=== PATIENT | female | born 2000 | race Caucasian/White ===

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

== ENCOUNTER 2021-01-04 07:09 | Inpatient (IN) | payer MEDICAID, SELFPAY ==
[2021-01-01 14:26] VITALS: BMI 27.8
[2021-01-04] VITALS (62 sets, daily range): BP systolic 102–142; BP diastolic 59–98; PULSE 69–135; RESP 16; TEMP 36.6–38.2; O2SAT 86–100; BMI 27.1
[2021-01-04] MEDS: Lactated Ringers 1,000 ML 50 ML IV (07:40)
[2021-01-04 08:10] LABS: Absolute Neutrophil Count 6.3 X10^3/uL (2.0-7.7); Basophil# 0.06 X10^3/uL; Basophil% 0.6 % (0-1); Eosinophil# 0.15 X10^3/uL; Eosinophils% 1.5 % (0-5); Hematocrit 33.4 % (37-47); Hemoglobin 10.1 g/dL (12.0-15.0); Lymphocyte % 21.3 % (19-41); Mean Corp Hgb Conc 30.2 g/dL (32-36); Mean Corpuscular Hgb 25.1 pg (27.0-32.0); Mean Corpuscular Volume 83.1 fL (81-99); Mean Platelet Vol. 13.3 fl (6.2-12.0); Monocyte# 1.11 X10^3/uL; Monocyte% 11.2 % (0-10); NRBC Flagged by Analyzer 0 % (0-5); Neutrophil % 63.8 % (47-70); Platelet Count 206 K/mm3 (150-450); RBC Distribution Width CV 14.5 % (11.6-14.6); RBC Distribution Width SD 43.7 fl (35.1-43.9); Red Blood Count 4.02 M/mm3 (4.2-5.4); White Blood Count 9.9 K/mm3 (4.4-11.0)
[2021-01-04] MEDS: Oxytocin 30 units/NS 500 ml 30 UNITS/500 ML IV.SOLN IV (08:18)
[2021-01-04] MEDS: Ondansetron 4 MG/2 ML Vial IV ×2 (08:34→15:21)
[2021-01-04] MEDS: 0.9% Saline Lock 10 ML Syringe IV ×4 (08:34→20:31)
[2021-01-04] MEDS: 0.9% Normal Saline Single 100 ML IV.SOLN. INTRA-UTER (08:38)
--- NOTE | 2021-01-04 09:01 | PCM.HPOB.BLA ---
- Problem List (1) Decreased movement Status: Acute Comment: plan IOL 39 weeks (2) 35 weeks gestation of Status: Acute Comment: electronic covid test ordered 12/03/20 (scheduled for 01/08/21 at 1550) (3) Marijuana abuse Status: Acute Comment: random tox (4) Scoliosis Status: Acute Qualifiers: Comment: Does report causes occasional pain. (5) Bipolar disorder Status: Acute Comment: Not on meds. Reports mood stable. (6) Supervision of high risk , antepartum Status: Acute Comment: PRR HAZEL 01/10/21 Girl - BHASKAR Marcialin (7) Status: Acute Qualifiers: Comment: CLF[place]ON at 27w. Reports did not have genetic testing. NOB labs ordered with 28w labs. 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 Is patient in pain?: No Allergies codeine Allergy (Verified 01/04/21 07:44) HALLUCINATIONS polyethylene glycol 3350 [From Miralax] Adverse Reaction (Verified 01/04/21 07:44) Hives Medications No122/Iron/Folic Acid [ Multi Tablet] 1 ea PO DAILY 11/10/20 [History Confirmed 01/04/21] ondansetron 4 mg disintegrating tablet 4 mg PO Q8H PRN #60 tab 11/25/20 [Rx Confirmed 01/04/21] Last Menstral Period: 04/05/20 Zika: Zika virus screening: Negative : No PFSH PFSH Medical History ADD (attention deficit disorder) (Acute) Depression with anxiety (Acute) OCD (obsessive compulsive disorder) (Acute) bipolar (Acute) Surgical History S/P appendectomy (Resolved) S/P tonsillectomy (Resolved) s/p finger surgery (Resolved) Family History Other Colon cancer Hypertension Lung cancer Ovarian cancer Schizophrenia Uterine cancer bipolar Social History (Updated 01/04/21 @ 08:[address] Ania Tavarez MD) Smoking Status: Never smoker alcohol intake: never substance use type: does not use seatbelt use: always do you feel safe at home: Yes additional social history: Boyfriend- Johnnie Pregancy History 3 Elective abortions Hx Para 0 Spontaneous abortions 2 Hx # Term Pregnancies Ectopic pregnancies Hx # Pregnancies Multiple births # of living children HPI 38WK OB : Details: SHANNAN ESTEBAN is a 20 year old who presents for routine OB visit. she is having decreased movement and therfore will undrgo IOL on 01/04/21 at 39 weeks. OB Visit HAZEL Calculator Estimated Delivery Date Method Current WG Current Estimate 01/10/21 LMP (Certain) 39w 1d Expected Delivery Route/Plan Labor Preferences- CB/BF classes: declines labor support person: Johnnie labor intervention preferences: interested in laboring in tub, open to standard interventions pain management options preferred: open to epidural cut cord/dad catch: cut : yes PP control planned: considering patch discussed possible routes of delivery and associated risks: discussed possible delivery modalities and possible indications for each including R/B/A of , VAVD, FAVD, and CS. questions answered. special requests: wants baby cleaned off before placed on chest Specific Issue/Plans flu vaccine: declines tdap vaccine: declines rhogam: NA LARC form signed: 11/25 movement and labor precautions reviewed. Problem list reviewed and updated with the most current plan of care details and appropriate orders placed. Relevant counseling for the gestational age provided. Continue routine care and follow up unless otherwise noted in visit notes/problem list details Initial Weight: Not Recorded Date EGA Weight BP Urine Prot Glucose FHR FuHt Pres Dilation Effaced St Visit Note 10/16/20 27w 5d 117 lb 2 oz 120/76 140 27 GP - CLIFTON from . ROR pending. Oriented to practice. OB book provided. GCT and NOB labs ordered. 10/28/20 29w 3d 114/70 Negative Negative 130 29 GP - no LOF, VB, DFM, ctx. GCT and 28 week labs to be drawn today (drank glucola during visit). NOB labs ordered with labs. 11/25/20 33w 3d 126 lb 120/74 Negative Negative 140 33 GP - no LOF,VB GP - no LOF,VB, DFM ctx. Discussed labor preferences. LARC form signed. PRR. 12/10/20 35w 4d 132 lb 120/82 Negative Negative 135 35 GP - no LOF, VB, DFM, ctx. Discussed routes of delivery. 12/18/20 36w 5d 137 lb 122/80 Negative Negative 130 37 Cephalic 1 60 -1 SM- no vb lof good fm no reuglar ctx gbs today 01/01/21 38w 5d 138 lb 100/60 Negative Negative 130 2 60 -1 SM- co dec fm for the past few days, reactive nst today. no vb lof irregular ctx ACOG First Trimester First Trimester: Desire for , Alcohol, Tobacco Cessation, Illicit/Recreational Drug/Substance Use, Intimate Partner Violence, Barriers to care, Unstable Housing, Communication Barriers, Environmental/Work Hazards, Anticipated Course of Care, Toxoplasmosis Precations, Use of Any medications, Sexual activity, Exercise, Dental Care, Sauna/Hot tub use, Seat Belt use, Childbirth classes/Hospital facilities, , Travel, Indications for US and Screening for Aneuploidy Second Trimester Second Trimester: Signs and Symptoms of Labor, Selecting a care provider, Reproductive Life Planning, Care Planning, Tobacco Cessation, Depression/Anxiety and Intimate Partner Violence Third Trimester Third Trimester: Pain Management Plans, Labor support person(s), Immediate Larc, Movement Monitoring and Infant Feeding Yes ; discussed Trial of Labor after Counseling or discussed Circumcision preference Diagnostics Diagnostics Diagnostics Blood Type Pending 01/04/21 Antibody Screen Pending 01/04/21 Glucose 1 Hr 50 gm 87 mg/dL (70-140) 10/28/20 HIV 1&2 Antibody Non-Reactive (Nonreactive) 10/28/20 Rubella IgG Antibody Reactive (Nonreactive) 10/28/20 Hgb 10.1 g/dL (12.0-15.0) L 01/04/21 Hct 33.4 % (37-47) L 01/04/21 RPR NONREACTIVE (NONREACTIVE) 10/28/20 Details: HIV: Urine Culture: Sequential Screen: NIPT Screen: ROS Const Reports system reviewed and no additional complaints, except as docu Card Reports system reviewed and no additional complaints, except as docu Resp Reports system reviewed and no additional complaints, except as docu GI Reports system reviewed and no additional complaints, except as docu, Reports nausea Reports system reviewed and no additional complaints, except as docu Musc Reports system reviewed and no additional complaints, except as docu Exam Const General: cooperative, healthy appearing, comfortable, anxious HENMT Head: normal to inspection Nose: external nose normal Face and sinus: normal facial exam Neck Neck: normal visual inspection, full ROM, no lymphadenopathy Thyroid: thyroid normal Chest Chest palpation & inspection: normal inspection of the chest Resp Effort & Inspection: normal respiratory effort GI Inspection: normal to inspection Palpation: soft, other (gravid uterus) Other: infant vertex and appropriate size for gestational age Other: Cervical Exam: Extrem General: pedal edema Office Procedures OB NST Non-Stress Test Indications for Monitoring: Yes decreased movement Heart Rate Baseline: 130 Heart Rate Variability: moderate Movement: Present Heart Rate Accelerations: Present Decelerations: Absent Contractions: Absent Impression: Yes Reactive Non-Stress Test Category 1 Results POC Urinalysis 2 Dip (Clinic) Office Urine Glucose Negative Last Edit by Jennifer Irvin on 01/01/21 14:32 Office Urine Protein Negative Last Edit by Jennifer Irvin on 01/01/21 14:32 Assessment & Plan Problems 1. Decreased movement O36.8190 plan IOL 39 weeks 2. 35 weeks gestation of Z3A.35 electronic covid test ordered 12/03/20 (scheduled for 01/08/21 at 1550) 3. Marijuana abuse F12.10 random tox 4. Scoliosis M41.9 Does report causes occasional pain. 5. Bipolar disorder F31.9 Not on meds. Reports mood stable. 6. Supervision of high risk , antepartum O09.90 PRR HAZEL 01/10/21 Girl - BHASKAR Marcial 7. Z34.90 CLIFTON at 27w. Reports did not have genetic testing. NOB labs ordered with 28w labs. Plan Patient presents IOL, plan management for with pitocin/AROM. and fb Pain management: plans epidural. GBS negative. Management of any complications: decreased movement- plan IOL I have reviewed the [facility] and made any clinically relevant updates. Orders Orders: POC Urinalysis 2 Dip (Clinic) 01/01/21 OB NST 01/01/21 O09.90, O36.8190 Coding Level of Care Code Off vis,est,level 4 Diagnoses Decreased movement O36.8190 35 weeks gestation of Z3A.35 Marijuana abuse F12.10 Scoliosis M41.9 Bipolar disorder F31.9 Supervision of high risk , antepartum O09.90 Z34.90 Additional Codes Non-Stress Test (51999) UPDATE- I have seen the patient and performed any clinically relevant updates to the history and physical exam. Ania Tavarez MD
[2021-01-04 11:26] LABS: Amphetamine Urine VISTA NEGATIVE (<1000 ng/mL); Barbiturate Urine VISTA NEGATIVE (< 200 ng/mL); Benzodiazepine Urine VISTA NEGATIVE (< 200 ng/mL); Cocaine Urine VISTA NEGATIVE (< 300 ng/mL); Ecstacy Urine VISTA NEGATIVE (< 500 ng/mL); Methadone Urine VISTA NEGATIVE (< 300 ng/mL); PCP Urine VISTA NEGATIVE (< 25 ng/mL); THC Urine VISTA NEGATIVE (< 50 ng/mL); Vista UDS pH Range 6
[2021-01-04] MEDS: Lactated Ringers 500 ML 999 ML IV ×2 (12:40→15:44)
[2021-01-04] MEDS: fentaNYL-bupivacaine (epidural) 100 ML BAG EPIDURAL (13:13)
[2021-01-04] MEDS: proCHLORPERazine 10 MG/2 ML Vial IV (16:57)
--- NOTE | 2021-01-04 17:17 | PCM.OPRPT ---
Problem List (1) Decreased movement Status: Acute Comment: plan IOL 39 weeks (2) 35 weeks gestation of Status: Acute Comment: electronic covid test ordered 12/03/20 (scheduled for 01/08/21 at 1550) (3) Marijuana abuse Status: Acute Comment: random tox (4) Scoliosis Status: Acute Qualifiers: Comment: Does report causes occasional pain. (5) Bipolar disorder Status: Acute Comment: Not on meds. Reports mood stable. (6) Supervision of high risk , antepartum Status: Acute Comment: PRR HAZEL 01/10/21 Girl - BHASKRA Marcial (7) Status: Acute Qualifiers: Comment: CLIFTON at 27w. Reports did not have genetic testing. NOB labs ordered with 28w labs. Vaginal Delivery Maternal Presentation: Medically Indicated Induction iol dec fm Method of Induction: Pitocin, Sanchez Bulb Amniotic Membrane Rupture Type: Spontaneous Amniotic Fluid Description: Clear Final HAZEL: 01/10/21 Gestational age: 39 Weeks and 2 Days Date of Procedure: 01/04/21 Pre-Operative Diagnosis: iol dec fm Post-Operative Diagnosis: same Surgery/ Procedure Performed: Spontaneous Vaginal Delivery Type of Anesthesia: Epidural Description of Procedure: Patient began pushing and delivered the head in the ALEXUS presentation. The head was delivered atraumatically and a loose nuchal cord ?1 was identified and the head was easily delivered through. The anterior and posterior shoulders delivered without complication followed by the rest of the infant and the was placed on the maternal abdomen. Delayed cord clamping was employed for approximately 60 seconds. Cord was clamped and cut and gentle traction was applied to the cord and the placenta delivered spontaneously immediately following it was noted to be intact with three-vessel cord. The perineum and vagina were inspected and noted to have no laceration. EBL was 200 cc. Patient and infant tolerated delivery well. Presentation: ALEXUS Placental Delivery Description: Spontaneous Placenta Disposition: [facility] Cord Vessel Description: 3 Vessels Cord Entanglement: Around neck x 1, loose Estimated Blood Loss: 200 Infant A gender: Female Episiotomy Description: None Laceration: None Medications given after delivery: IV Pitocin Complications: None Multi Select Codes - Urinary/Genital Urinary/Genital CPT Codes: 09504 Vaginal Delivery+ PP Care([facility])
[2021-01-04] MEDS: Oxytocin 30 units/NS 500 ml 30 UNITS/500 ML IV.SOLN 334 UNITS IV (17:51)
[2021-01-04] MEDS: Acetaminophen 500 MG Tablet 1000 MG PO (19:48)
--- NOTE | 2021-01-04 20:08 | NURSING ---
Called Dr. Tavarez to update that patient's temp is down to 99.9 orally. Plan is to continue to let Dr. Tavarez know if patient's temperature exceeds 100.4 over the next 24 hours.
[2021-01-05 03:15] VITALS: BP 116/84; PULSE 78; RESP 16; TEMP 36.2
[2021-01-05] MEDS: Naproxen 250 MG Tablet 500 MG PO ×2 (03:37→12:36)
--- NOTE | 2021-01-05 07:44 | PCM.PN.OB ---
Patient Problems: Active and Suspected Problems (Last Reviewed 01/01/21 @ 14:26 by Jennifer Irvin) Decreased movement (Acute) plan IOL 39 weeks 35 weeks gestation of (Acute) electronic covid test ordered 12/03/20 (scheduled for 01/08/21 at 1550) Marijuana abuse (Acute) random tox Scoliosis (Acute) Does report causes occasional pain. Bipolar disorder (Acute) Not on meds. Reports mood stable. Supervision of high risk , antepartum (Acute) PRR HAZEL 01/10/21 Girl - BHASKAR Marcial Johnnie (Acute) [place] at 27w. Reports did not have genetic testing. NOB labs ordered with 28w labs. Subjective: Patient doing well without complaints. Tolerating PO. Ambulating and voiding without difficulty. Bottle feeding well. Denies chest pain, shortness of breath, calf pain/swelling, fevers, chills, lightheadedness. - Physical Exam Vitals/I&O's: Vital Signs Temp Pulse Resp BP Pulse Ox 97.2 F L 78 16 116/84 H 97 01/05/21 03:15 01/05/21 03:15 01/05/21 03:15 01/05/21 03:15 01/04/21 20:00 Oxygen Delivery Method Room Air Weight: 134 lb 11.239 oz Body Mass Index (BMI) 27.1 Intake and Output for Last 24 Hours 01/03/21 01/04/21 01/05/21 23:59 23:59 23:59 Intake Total 3444.17 / 3444.17 Output Total 2450 / 2450 Balance 994.17 / 994.17 General: Alert, Oriented x3 Abdomen: Soft, Non Tender, - - FF below U Microbiology Past 72 Hours 01/04/21 08:29 Mucosa - Oral SARS-CoV-2 Antigen (Rapid) - Final Laboratory Results 01/04/21 07:42: WBC 9.9, RBC 4.02 L, Hgb 10.1 L, Hct 33.4 L, MCV 83.1, MCH 25.1 L, MCHC 30.2 L, RDW Std Deviation 43.7, RDW Coeff of Rodney 14.5, Plt Count 206, MPV 13.3 H, Immature Gran % (Auto) 1.600 H, Neut % (Auto) 63.8, Lymph % (Auto) 21.3, [place] % (Auto) 11.2 H, Eos % (Auto) 1.5, Baso % (Auto) 0.6, Absolute Neuts (auto) 6.3, Absolute Lymphs (auto) 2.10, Nucleated RBC % 0 01/04/21 07:42: Blood Type O POSITIVE, Antibody Screen NEGATIVE 01/04/21 09:20: Urine Opiates Screen NEGATIVE, Urine Methadone Screen NEGATIVE, Ur Barbiturates Screen NEGATIVE, Ur Phencyclidine Scrn NEGATIVE, Ur Amphetamines Screen NEGATIVE, U Methamphetamin-MDMA NEGATIVE, U Benzodiazepines Scrn NEGATIVE, Urine Cocaine Screen NEGATIVE, U Cannabinoids Screen NEGATIVE, Ur Drug Screen Comment Current Medications Acetaminophen (Acetaminophen 500 Mg Tablet) 1,000 mg PO Q8H PRN PRN PRN Reason: Pain Score 1-3 Last Admin: 01/04/21 19:48 Dose: 1,000 mg Documented by: Bisacodyl (Bisacodyl 10 Mg Suppository) 10 mg RECTAL UD PRN PRN Reason: If no BM Dibucaine (Dibucaine 30 Gm Tube) 1 applic TOPICAL TID PRN PRN; Protocol PRN Reason: Discomfort Hydrocortisone (Hydrocortisone 2.5% Crm) 1 applic TOPICAL TID PRN PRN; Protocol PRN Reason: Discomfort Methylergonovine Maleate (Methylergonovine 0.2 Mg/Ml Ampul) 0.2 mg IM X1 PRN PRN Reason: Excess bleeding/uterine atony Naproxen (Naproxen 250 Mg Tablet) 500 mg PO Q8H PRN PRN PRN Reason: Pain Score 1-3 Last Admin: 01/05/21 03:37 Dose: 500 mg Documented by: Ondansetron HCl (Ondansetron 4 Mg/2 Ml Vial) 4 mg IV Q4H PRN PRN PRN Reason: Nausea Oxycodone HCl (Oxycodone 5 Mg Tablet) 5 - 10 mg PO Q4H PRN PRN PRN Reason: Pain Score 4-10 Senna/Docusate Sodium (Senna/Docusate Sodium 1 Tablet) 1 - 2 tablet PO DAILY PRN PRN PRN Reason: Constipation Simethicone (Simethicone 80 Mg Tablet) 80 mg PO PCHS PRN PRN Reason: Indigestion/Stomach pain Sodium Chloride (0.9% Saline Lock 10 Ml Syringe) 5 - 15 ml IV UD PRN PRN Reason: SALINE FLUSH Last Admin: 01/04/21 20:31 Dose: 10 ml Documented by: Medical Necessity - Tobacco Use Smoking Status: Never smoker Assessment/Plan All Active Problems (Last Reviewed 01/01/21 @ 14:26 by Jennifer Irvin) Decreased movement (Acute) 35 weeks gestation of (Acute) Marijuana abuse (Acute) Scoliosis (Acute) Bipolar disorder (Acute) Supervision of high risk , antepartum (Acute) (Acute) Threatened labor (Resolved) s/p PPD # 1 1. routine post delivery care 2. bottle feeding- support given 3. rh positive 4. rubella immune 5. home today
--- NOTE | 2021-01-05 07:46 | DCINST_ITS ---
Additional Instructions: If you experience any of the following, contact your healthcare provider. * Bleeding that soaks a pad every hour for 2 hours * Fever 100.4 or higher * Unrelieved incision or abdominal pain * Swelling, redness, discharge or bleeding from your incision or episiotomy site * Your incision begins to separate * Problems urinating (including inability to urinate or burning while urinating). * Visual changes * Severe headache * Flu-like symptoms * Pain or redness in one of both of your breasts * Pain, warmth, tenderness or swelling in your legs, especially the calf area * Frequent nausea and vomiting * Symptoms of depression or anxiety If you experience any of the following, call 911 or go to the nearest Emergency Room. * Chest pain * Problems breathing * Seizure activity * Partial or complete paralysis of a body part, slurred speech, weakness or drooping of the face, or a sudden inability to walk or hold your balance Allergies/Adverse Reactions: Allergies codeine Allergy (Verified 01/04/21 07:44) HALLUCINATIONS polyethylene glycol 3350 [From Miralax] Adverse Reaction (Verified 01/04/21 07:44) Hives Medications to take at Discharge No122/Iron/Folic Acid [ Multi Tablet] 1 ea PO DAILY 11/10/20 ondansetron 4 mg disintegrating tablet 4 mg PO Q8H PRN #60 tab 11/25/20 Primary Care Physician: Care Physician,No Primary [Primary Care Provider] - Test Results: Test results from this visit will be discussed in further detail at your follow- up appointment, if applicable.
--- NOTE | 2021-01-05 07:46 | PCM.DCVAG ---
Additional Instructions: If you experience any of the following, contact your healthcare provider. Bleeding that soaks a pad every hour for 2 hours Fever 100.4 or higher Unrelieved incision or abdominal pain Swelling, redness, discharge or bleeding from your incision or episiotomy site Your incision begins to separate Problems urinating (including inability to urinate or burning while urinating). Visual changes Severe headache Flu-like symptoms Pain or redness in one of both of your breasts Pain, warmth, tenderness or swelling in your legs, especially the calf area Frequent nausea and vomiting Symptoms of depression or anxiety If you experience any of the following, call 911 or go to the nearest Emergency Room. Chest pain Problems breathing Seizure activity Partial or complete paralysis of a body part, slurred speech, weakness or drooping of the face, or a sudden inability to walk or hold your balance Allergies/Adverse Reactions: Allergies codeine Allergy (Verified 01/04/21 07:44) HALLUCINATIONS polyethylene glycol 3350 [From Miralax] Adverse Reaction (Verified 01/04/21 07:44) Hives Medications to take at Discharge No122/Iron/Folic Acid [ Multi Tablet] 1 ea PO DAILY 11/10/20 ondansetron 4 mg disintegrating tablet 4 mg PO Q8H PRN #60 tab 11/25/20 Primary Care Physician: Care Physician,No Primary [Primary Care Provider] - Test Results: Test results from this visit will be discussed in further detail at your follow-up appointment, if applicable.
[2021-01-05] MEDS: Acetaminophen 500 MG Tablet 1000 MG PO (07:58)
[2021-01-05 08:11] VITALS: BP 124/78; PULSE 64; RESP 16; TEMP 36.2
[2021-01-05 12:00] VITALS: BP 117/82; PULSE 91; RESP 16; TEMP 36.6
[2021-01-05 16:08] VITALS: BP 120/82; PULSE 76; RESP 20; TEMP 36.8
--- NOTE | 2021-01-05 16:11 | CASEMGMT ---
Social Work Assessment Labor and Delivery Unit Patient Address: [address] [place] [address]., [address], [place] [id number] Phone number: [phone] Date of Referral: 01/04/2021 Time of Referral: 727 Referred By: Dr. Tavarez Date of Intervention: 01/05/2021 Time of Intervention: 1529 Reason for Referral: Maternal history of marijuana in , anxiety, depression, OCD, bipolar disorder, not on medication. History obtained from: Medical records and mother of baby (MOB) Jonathan Sullivan; father of baby (FOB) Johnnie Vázquez present for latter part of conversation. Household composition: MOB and FOB live together in a mobile home. Home situation is reported as safe and adequate. Patient's parent/guardian status: MICHELLE is a 20-year-old single female who has been involved with the FOB who is age 32 for the last 3 years. No reports of any domestic violence issues in this relationship. Duncan baby is the first child for MOB and FOB together. FOB does have 2 older children: Ad (age 9) and Antonio (age 4). FOB does not see Ad but gets visits with Antonio (Antonio is in the custody of ADILENE's mother). Duncan baby girl is to be named Aggie Vázquez, born 3.. Medical History: MICHELLE is 3, para 0 now 1 after delivering Aggie. care started somewhere in the end of the first trimester or beginning of second trimester. Noted an emergency room visit in May 2020 where it was known MICHELLE was . MICHELLE reports she started her care at [facility] and went to a couple of appointments, but did not like the drive nor the lack of personal experience she received. MICHELLE transferred care to Dr. Farrukh Santos at 27 weeks gestation in October 2020. Noted in the care record the MOB did miss an appointment with Dr. Tavarez on September 22, 2020. Duncan baby delivered at 7 pounds 8 ounces, 39 weeks gestation. Apgars 8 and 9 at 1 and 5 minutes of life respectively. Educational Status: MICHELLE reports she did not complete past the eighth grade. Reports she quit school due to a younger sister having health issues, and MOB mom not really been attentive to the sister's needs. MICHELLE reports that she does at times have difficulty reading and writing but with help has no issues with comprehension. MICHELLE reports that the FOB is helpful to her if she has a hard time with what she is reading. Financial Status: FONi reports he is trained as a powerhouse mechanic apprentice so is able to do some side jobs. FOB also helps the MOB grandfather with cutting wood on the weekends. It is unclear as to whether there is any other financial support in the home. Supplies: MOB and FOB report to have needed baby supplies including a car seat, crib, bassinet, diapers, clothing, swing, bottles, breast pump and formula. Childcare/Caregiver(s): MOB plans to be the primary caregiver with the help of the FOB. Transportation: Neither parent drives so rely on the FOB's mother, MOB grandmother, or MOB mother. MICHELLE is aware of transportation through her insurance. Programs/Agencies Involved: MICHELLE is connected with [facility] [id number] and family [employer] for food and medical. Reports to be active with [facility]. Has a history of attending [facility], but not current. MICHELLE reports to have an appointment for the baby at [facility] on 01/08/2021. MOB interested in help me grow information only. Not interested in a referral at this time. Children Services/Legal Issues: MICHELLE denies any history of children services as a minor. Denies any legal issues for herself or the FOB. Behavioral Health Issues: Mental Health History: MICHELLE reports a history of bipolar disorder, anxiety, depression, and schizophrenia. Additionally, per the chart, MICHELLE is noted to have OCD and ADD. MICHELLE reports that schizophrenia is not an official diagnosis, but was told this will likely be diagnosed when MICHELLE turns 25. MICHELLE reports as a child she used to see things, which led [facility] to believe schizophrenia may be present. MICHELLE reports a history of overdose at the age of 13 or 14. Denies any suicidal ideations or attempts assist since that time. MICHELLE reports she has been tried on various medications, and did not really like many of them. Of the medications MOB has tried, MICHELLE reports Zoloft worked the best. Substance Use History: MICHELLE endorses history of marijuana usage with last use of smoking marijuana being around 13 weeks, around the time MOB found out she was . MICHELLE reports she was using a topical cream on her skin, which was made by a family member, and later on found out there was THC based CBD oil and this. MOB reports she found out only recently that the topical cream had THC CBD. MOB reports the last use of any topical cream was on November 08 or November 09, 2020. MOB reports she really only likes natural things, so has not been interested or ever had an issue with other drugs such as heroin, meth, cocaine, or pills. MOB does not use tobacco. Denies any alcohol usage. Family History: MOB father with a history of schizophrenia. MOB mother with a history of bipolar disorder. Drug Screens: Maternal drug screen positive on 10/16/2020 at the 27-week visit for marijuana. Negative on 01/04/2021. Baby's urine is negative. Meconium is pending. Family/Social Stressors: History of 2 miscarriages prior to becoming with the baby. MOB admit endorses COVID as increasing MOB anxiety. Support Systems: MOB reports to have a good support system including the FOB, with whom MOB usually talks to about most things including MOB mental health. Additional support from MOB mother and grandmother. FOB's mother is reported as supportive. MOB reports to be 1 of 19 siblings (all except 1 or from the MOB father). Depression/Shaken Baby/Safe Sleeping educated parents to shaken baby prevention and safe sleeping. Educated to mood and anxiety disorders including depression, anxiety, and psychosis. Risk factors discussed as well as importance of seeking out help and support. MOB reports her first step would be to talk to the FOB and that and then seek out support with the [facility] for evaluation. MOB reports she would be open to medication if needed. MOB reports she can also talk to her mother. ASSESSMENT: With the MOB in her room alone and then later joined by the FOB. MOB reported there is no topic that could not be discussed in front of the FOB, and reports the FOB is very supportive. MOB reports she has felt it important through the years to talk to the FOB about her mental health, because things need to be out in the open. MOB reports to like to talk to people, as well as enjoys music and being crafty or doing things with her hands for coping. MOB reports to feel her mood is stable at this time. Does report willingness to seek out mental health support due to understanding of risk for mood issues. MOB reports she can call make her own appointment. MOB reports she stopped smoking marijuana around 13 weeks, and reports to have no intent to pick this back up again. MOB and FOB report to have needed baby supplies. FOB will be at home to help MOB with care of baby. Did speak with the MOB about possible children services involvement based on substance exposure in utero. MOB excepted this information, and no questions were asked. Did offer parents opportunity to ask questions. No voiced concerns by nursing staff regarding parent/child interactions or bonding. MOB endorses having a loving arnett with the baby. MOB held good eye contact, bright affect contact and nondefensive in conversation. FOB, when present, was actively engaged in conversation. Respectful to the MOB and presenting as supportive to the MOB. Safe Plan of Care for infant related to substance use: MOB reports intent to abstain from future substance use. MOB reports if anything changes down the road would smoke marijuana outside of the home or in a different part of the house and not around the baby. MOB reports there is also family members who could watch the baby if needed. Ultimate plan however is to abstain. PLAN: MOB and baby to home at time of discharge. FOB to help provide support at home going. [facility] resource list provided including a help me grow information. Packet on mood and anxiety disorders also provided, and verbally reviewed with both the MOB and FOB. Will be calling [facility] children services due to substance exposed infant. -RUDY Bailey MSW *Information documented in this assessment generated with [facility]*
--- NOTE | 2021-01-06 10:11 | CASEMGMT ---
Social Work Labor and Delivery Called [facility] and spoke Cassy Blackburn in the intake department, . Referral due to substance exposed infant in utero. Reported maternal positive drug screen, an also negative drug screens for mom and baby at time of delivery. Reported maternal mental health history, currently untreated. Brief maternal and histories provided. Will monitor for meconium drug screen results and report as indicated. -RICHARD Bailey, CTE TEACHER
== END 2021-01-05 18:50 | disposition home or self-care (01) | DRG 560 ==
PROVIDERS: Admitting Provider Obstetrics & Gynecology; Visit Provider Obstetrics & Gynecology
DX: O36.8130 Decreased fetal movements, third trimester, not applicable or unspecified (principal); O69.81X0 Labor and delivery complicated by cord around neck, without compression, not applicable or unspecified; Z3A.39 39 weeks gestation of pregnancy; Z37.0 Single live birth
CPT/HCPCS: 59025; 59050; 80307; 85025; 86850; 86900; 86901; 87426; 99218; J7120; A4216; G0378; J2405

== ENCOUNTER → 2024-06-14 | Outpatient (CLI) | payer MEDICAID, SELFPAY ==
[2024-06-18 12:00] LABS: Chlamydia By Nucleic Acid AMP Negative (Negative); Gonococcus By Nucleic Acid AMP Negative (Negative)
[2024-06-24 16:07] LABS: HPV Reflexed? NOT INDICATED
== END | disposition home or self-care (01) ==
LOC: LABSPEC 16:25
PROVIDERS: Referring Provider Advanced Practice Midwife; Visit Provider Advanced Practice Midwife
DX: Z12.4 Encounter for screening for malignant neoplasm of cervix (principal); O09.90 Supervision of high risk pregnancy, unspecified, unspecified trimester; N96 Recurrent pregnancy loss; O99.891 Other specified diseases and conditions complicating pregnancy; Z3A.00 Weeks of gestation of pregnancy not specified
CPT/HCPCS: 87086; 87088; 87491; 87591; 88175; G0145

== ENCOUNTER 2024-06-29 11:33 | Emergency (ER) | payer MEDICAID, SELFPAY ==
[2024-06-29 11:35] VITALS: BP 105/75; PULSE 97; RESP 16; TEMP 36.4; O2SAT 100
--- NOTE | 2024-06-29 11:46 | EDS_ITS ---
HPI History of Present Illness Chief Complaint: Nausea/Vomiting Narrative Narrative: 23-year-old female at approximately 13 weeks gestation presents with nausea and vomiting for the last 48 hours. States she does use marijuana, but has not smoked in a while, but she has smoked during this . She states that she is currently dry heaving. She was seen at [facility] emergency department yesterday evening was not sent home with medication. She presents with her grandmother because of increased nausea and dry heaving. She denies any vaginal bleeding or cramping. No fevers but she states she feels cold. She states she has not had problems with hyperemesis with this . Her PIPE MACHINE OPERATOR is Dr. Ania Tavarez. She presents because of the continued nausea and vomiting and wanting Zofran. [facility] Medical History OCD (obsessive compulsive disorder) ADD (attention deficit disorder) Depression with anxiety bipolar Home Medications ?Medication ?Instructions ?Recorded ?Last Taken ?Type docosahexaenoic acid 200 mg 200 mg PO DAILY 06/14/24 Unknown History capsule ( DHA) metoclopramide HCl 10 mg tablet 10 mg PO TID PRN PRN nausea and 06/29/24 Unknown Rx (Reglan) vomiting #20 tabs Allergy/AdvReac Type Severity Reaction Status Date / Time codeine Allergy HALLUCINATI Verified 06/29/24 11:35 ONS polyethylene glycol 3350 AdvReac Hives Verified 06/29/24 11:35 (From Miralax) Family History Other Colon cancer Hypertension Lung cancer Ovarian cancer Schizophrenia Uterine cancer bipolar Surgical History S/P tonsillectomy s/p finger surgery S/P appendectomy Social History adopted: No household members: family housing: house number of children: 1 current occupational status: employed current occupation: dancer current occupational exposures/hazards: No pets and animals: Yes pets and animals: cat(s) and dog(s) history of recent travel: No sexually active: Yes Smoking Status: Never smoker alcohol intake: never substance use type: marijuana caffeine: No what type of physical activity do you participate in: aerobics frequency: 5-6 times per week seatbelt use: never do you feel safe at home: Yes additional social history: Boyfriend- Johnnie ROS ROS ED ROS Narrative Constitutional: No fever, no chills. HEENT: No sore throat. No neck pain. No loss of vision. No rhinorrhea. Cardiovascular: No chest pain. No palpitations. No pedal edema. Respiratory: No cough, no shortness of breath. Abdominal: No abdominal pain. Positive nausea and vomiting. Genitourinary: No dysuria. No hematuria. No vaginal bleeding or cramping. Musculoskeletal: No myalgias. No arthralgias. Neurologic: No headaches. No dizziness. No lightheadedness. Skin: No rash. No change in color. Psychiatric: No depression. No anxiety. EXAM Physical Exam Narrative Exam Narrative: Afebrile. Vital signs noted. HEENT: Normocephalic. Atraumatic. PERRL, EOMI. Neck soft and supple. No point tenderness or step off. Cardiovascular: Regular rate and rhythm. No murmurs, rubs, or gallops appreciated. Respiratory: No tachypnea. Lungs clear to auscultation bilaterally. Gastrointestinal: Abdomen soft, nontender, with normoactive bowel sounds. No rebound or guarding. Neurological: Awake. Alert. Nonfocal, nonlateralizing. Skin: No rash. Normal color. No pallor. Musculoskeletal: No pedal edema. Full range of motion extremities. Const Vital Signs: 06/29/24 11:35 06/29/24 12:50 Temperature 97.5 F L Temperature Source Temporal Pulse Rate 97 65 Respiratory Rate 16 18 Blood Pressure 105/75 106/65 Blood Pressure Mean 85 78 Pulse Ox 100 95 Oxygen Delivery Method Room Air Room Air MDM MDM MDM Narrative Medical decision making narrative: Concerns for hyperemesis and dehydration. Patient bolused normal saline intravenously and given Zofran intravenously. She may have hyperemesis gravidarum versus cyclic vomiting from cannabis use. I have low concern for ectopic or miscarriage currently. I will obtain a CBC and a CMP along with a lipase. Urinalysis will also be obtained. I reviewed her laboratory work and she has slightly elevated white count of 12.0 which may be demargination from her vomiting, hemoglobin normal at 13.2, hematocrit 39.3, platelet count normal at 253. Sodium slightly low at 133. She was bolused normal saline. Potassium normal 3.8, chloride 104. Glucose is appropriately elevated at 126 with an anion gap normal at 11. AST is low at 10 and ALT 7 with also a low alk phos. Although patient is not having pelvic pain or vaginal bleeding, she requested bedside ultrasound which was performed by myself independently. There is evidence of heart rate and activity. Patient was reassured. I reviewed her urinalysis and she did have 150 ketones with 0-5 white cells but 1+ bacteria. This was sent for culture. I then discussed patient with the nurse production hand for Dr. Ania Tavarez. They agree with refraining from marijuana use when possible and she will be given a prescription for Reglan to take up to 3 times a day, and follow-up with the PIPE MACHINE OPERATOR. Repeat examination at approximately 2 PM shows her to be resting comfortably after receiving Reglan. At this point in time, I feel she can be discharged safely home with follow-up as her liter of normal saline has been completed. Return instructions to the emergency department were reviewed. Disposition is discharged home in stable condition. History & Record Review Discussion w/independent historian: Patient Lab Data Attestation: I reviewed the patient's lab results. Labs: Laboratory Results - last 24 hr 06/29/24 06/29/24 11:55 13:10 WBC 12.0 H RBC 4.42 Hgb 13.2 Hct 39.9 MCV 90.3 MCH 29.9 MCHC 33.1 RDW Std Deviation 43.7 RDW Coeff of Rodney 13.3 Plt Count 253 MPV 11.8 Immature Gran % (Auto) 0.600 Neut % (Auto) 88.5 H Lymph % (Auto) 6.3 L [place] % (Auto) 4.0 Eos % (Auto) 0.3 Baso % (Auto) 0.3 Absolute Neuts (auto) 10.6 H Absolute Lymphs (auto) 0.76 L Nucleated RBC % 0 Sodium 133 L Potassium 3.8 Chloride 104 Carbon Dioxide 18.0 L Anion Gap 11 BUN 6 L Creatinine 0.67 Estim Creat Clear Calc 94.60 Est GFR (MDRD) Af Amer 142 Est GFR (MDRD) Non-Af 117 BUN/Creatinine Ratio 9.0 L Glucose 126 H Calcium 9.1 Total Bilirubin 0.40 AST 10 L ALT 7 L Alkaline Phosphatase 42 L Total Protein 7.7 Albumin 3.5 Globulin 4.2 Albumin/Globulin Ratio 0.8 L Lipase 23 Urine Color Yellow Urine Clarity Clear Urine pH 6.0 Ur Specific [place] 1.030 Urine Protein 30 H Urine Glucose (UA) Normal Urine Ketones 150 A* Urine Occult Blood Negative Urine Nitrite Negative Urine Bilirubin Negative Urine Urobilinogen Normal Ur Leukocyte Esterase Negative Urine RBC 0 SEEN Urine WBC 0-5 SEEN Ur Squamous Epith Cells 0 SEEN Urine Bacteria 1+ Hyaline Casts 0-5 SEEN Urine Mucus 1+ Management Discussion w/another healthcare provider: Cake Wrapper (Nurse production hand for Dr. Ania Tavarez) Discharge Plan Triage Chief Complaint: Nausea/Vomiting ED Provider: Jordon Heredia Dx/Rx/DC Orders Clinical Impression: , Nausea and vomiting during Instructions: ED Vomiting (Adult), ED Established ... Prescriptions: New metoclopramide HCl [Reglan] 10 mg tablet 10 mg PO TID PRN PRN (Reason: nausea and vomiting) Qty: 20 0RF No Action DHA 200 mg capsule 200 mg PO DAILY Primary Care Provider: Care Physician,No Primary Referrals: Ania Tavarez MD [Med Staff - Active Staff] - As soon as possible Care Physician,No Primary [Primary Care Provider] - Activity Restrictions/Additional Instructions: Follow-up with your PIPE MACHINE OPERATOR in the next few days. Return with fever, new or worsening symptoms. Refrain from marijuana use if possible during . Print Language: Guatemalan Disposition Disposition: Home, Self Care
[2024-06-29] MEDS: Ondansetron 4 MG/2 ML Vial IV (11:56)
[2024-06-29] MEDS: 0.9% Normal Saline (1000mL) 1,000 ML 999 ML IV (11:56)
[2024-06-29 12:01] VITALS: BMI 21.3
[2024-06-29 12:10] LABS: Absolute Lymphocyte Count 0.76 X10^3/uL (0.83-4.51); Absolute Neutrophil Count 10.6 X10^3/uL (2.0-7.7); Basophil# 0.03 X10^3/uL; Basophil% 0.3 % (0-1); Eosinophil# 0.04 X10^3/uL; Eosinophils% 0.3 % (0-5); Hematocrit 39.9 % (37-47); Hemoglobin 13.2 g/dL (12.0-15.0); Lymphocyte # 0.76 X10^3/ul (0.83-4.51); Lymphocyte % 6.3 % (19-41); Mean Corp Hgb Conc 33.1 g/dL (32-36); Mean Corpuscular Hgb 29.9 pg (27.0-32.0); Mean Corpuscular Volume 90.3 fL (81-99); Mean Platelet Vol. 11.8 fl (6.2-12.0); Monocyte# 0.48 X10^3/uL; NRBC Flagged by Analyzer 0 % (0-5); Neutrophil # 10.61 X10^3/uL (2.7-7.7); Neutrophil % 88.5 % (47-70); Platelet Count 253 K/mm3 (150-450); RBC Distribution Width CV 13.3 % (11.6-14.6); RBC Distribution Width SD 43.7 fl (35.1-43.9); Red Blood Count 4.42 M/mm3 (4.2-5.4)
[2024-06-29 12:24] LABS: ALB/GLOB Ratio 0.8 RATIO (0.9-2.4); AST(SGOT) 10 U/L (15-37); Alanine Aminotransfer ALT/SGPT 7 U/L (13-56); Albumin, Serum 3.5 g/dL (3.2-5.0); Alkaline Phosphatase 42 U/L (45-117); Anion Gap 11 (5-15); BUN 6 mg/dL (7-18); Calcium,Total 9.1 mg/dL (8.5-10.1); Chloride 104 mmol/L (98-107); Creatinine, Serum 0.67 mg/dL (0.55-1.02); EST Glomerular Filtration Rate 117 mL/min (>60); Est Glom Filt Rate - Afr Amer 142 mL/min (>60); Globulin 4.2 g/dL (2.2-4.2); Glucose 126 mg/dL (74-106); Potassium 3.8 mmol/L (3.5-5.1); Protein, Total 7.7 g/dL (6.4-8.2); Sodium Level 133 mmol/L (136-145)
[2024-06-29] MEDS: Metoclopramide 10 MG/2 ML Vial IV (12:49)
[2024-06-29 12:50] VITALS: BP 106/65; PULSE 65; RESP 18; O2SAT 95
[2024-06-29 13:04] LABS: Lipase 23 U/L (13-75)
[2024-06-29 13:19] LABS: Red Blood Cells-Urine 0 SEEN /hpf (0-5); Squamous Epithelial Cells - UA 0 SEEN /hpf (5-10)
[2024-06-29 13:27] LABS: Color, Urine Yellow (Yellow); Glucose, Dipstick Normal (Normal); Leukocyte Esterase-Dipstick Negative /ul (Negative); Nitrite-Dipstick Negative (Negative); Occult Blood-Urine Negative /ul (Negative); Protein-Dipstick 30 mg/dl (Negative); Urine Bilirubin Dipstick Negative (Negative); Urine Clarity Clear (Clear); Urine Urobilinogen Normal (Normal)
[2024-06-29 13:40] LABS: Ketone-Dipstick 150 mg/dl (Negative)
[2024-06-29 13:43] LABS: Bacteria 1+ /hpf (None Seen); Hyaline Cast 0-5 SEEN /lpf (0-5); White Blood Cells 0-5 SEEN /hpf (0-5)
[2024-06-29 13:44] LABS: Mucous, Urine 1+ /hpf (<or=2+)
[2024-06-29 14:27] VITALS: BP 110/69; PULSE 108; RESP 18; TEMP 36.6; O2SAT 97
== END 2024-06-29 14:27 | disposition home or self-care (01) ==
PROVIDERS: Emergency Provider Emergency Medicine; Visit Provider Emergency Medicine
DX: O21.9 Vomiting of pregnancy, unspecified (principal); O99.321 Drug use complicating pregnancy, first trimester; F12.90 Cannabis use, unspecified, uncomplicated; Z3A.13 13 weeks gestation of pregnancy
CPT/HCPCS: 80053; 81001; 83690; 85025; 87086; 87088; 96361; 96374; 96375; 99283; J7030; A4216; J2405

== ENCOUNTER 2024-06-30 16:00 | Emergency (ER) | payer SELFPAY ==
[2024-06-30 16:01] VITALS: BP 105/71; PULSE 82; RESP 18; TEMP 36.6; O2SAT 98
[2024-06-30 16:06] VITALS: BMI 20.6
[2024-06-30] MEDS: Metoclopramide 10 MG/2 ML Vial 5 MG IV (16:37)
[2024-06-30] MEDS: 0.9% Normal Saline (1000mL) 1,000 ML 999 ML IV (16:41)
--- NOTE | 2024-06-30 16:51 | ED.RN ---
BATHROOM CALL LIGHT WENT OFF, THIS NURSE WENT TO THE BATHROOM, PT WAS ON THE FLOOR LAYING DOWN. PT STATES I DIDN'T FALL, I SAT DOWN. PT ESCORTED BACK TO HER ROOM BY THIS RN. PATIENT DENIES DIZZINESS AND WEAKNESS.
[2024-06-30 16:56] LABS: Absolute Lymphocyte Count 1.18 X10^3/uL (0.83-4.51); Basophil# 0.04 X10^3/uL; Basophil% 0.3 % (0-1); Eosinophil# 0.03 X10^3/uL; Eosinophils% 0.2 % (0-5); Hematocrit 37.6 % (37-47); Hemoglobin 12.8 g/dL (12.0-15.0); Lymphocyte # 1.18 X10^3/ul (0.83-4.51); Mean Corpuscular Hgb 29.6 pg (27.0-32.0); Mean Corpuscular Volume 86.8 fL (81-99); Mean Platelet Vol. 12.4 fl (6.2-12.0); Monocyte# 0.89 X10^3/uL; Monocyte% 6.8 % (0-10); NRBC Flagged by Analyzer 0 % (0-5); Neutrophil # 10.95 X10^3/uL (2.7-7.7); Neutrophil % 83.2 % (47-70); Platelet Count 267 K/mm3 (150-450); RBC Distribution Width CV 13.2 % (11.6-14.6); Red Blood Count 4.33 M/mm3 (4.2-5.4); White Blood Count 13.2 K/mm3 (4.4-11.0)
[2024-06-30 17:00] LABS: Anion Gap 13 (5-15); BUN 6 mg/dL (7-18); BUN/Creat Ratio 12.6 RATIO (10-20); Calcium,Total 9.2 mg/dL (8.5-10.1); Chloride 105 mmol/L (98-107); Creatinine, Serum 0.48 mg/dL (0.55-1.02); EST Glomerular Filtration Rate 172 mL/min (>60); Est Glom Filt Rate - Afr Amer 208 mL/min (>60); Estimated Creatinine Clearance 132.05 ml/min; Glucose 105 mg/dL (74-106); Potassium 3.2 mmol/L (3.5-5.1); Sodium Level 137 mmol/L (136-145)
[2024-06-30 17:03] LABS: Mucous, Urine 0 SEEN /hpf (<or=2+)
[2024-06-30 17:04] LABS: Color, Urine Yellow (Yellow); Glucose, Dipstick Normal (Normal); Leukocyte Esterase-Dipstick 25 /ul (Negative); Nitrite-Dipstick Negative (Negative); Occult Blood-Urine Negative /ul (Negative); Protein-Dipstick 30 mg/dl (Negative); Specific Gravity, Urine 1.025 (1.002-1.030); Urine Bilirubin Dipstick 1 mg/dL (Negative); Urine Clarity Sl. Cloudy (Clear); Urine Urobilinogen 1 mg/dl (Normal)
[2024-06-30 17:09] LABS: Ketone-Dipstick 150 mg/dl (Negative)
[2024-06-30 17:13] LABS: Bacteria 1+ /hpf (None Seen); Red Blood Cells-Urine 0-5 SEEN /hpf (0-5); Squamous Epithelial Cells - UA 5-10 SEEN /hpf (5-10); White Blood Cells 5-10 SEEN /hpf (0-5)
--- NOTE | 2024-06-30 17:26 | EDS_ITS ---
HPI <JOSE MANUEL Galindo - Last Filed: 06/30/24 17:31> History of Present Illness Chief Complaint: Nausea/Vomiting Narrative Narrative: Patient presenting today due to nausea and vomiting. She reports that she is currently 13 to 15 weeks and is G4, P1. She follows with Dr. Tavarez. She reports that over the past several days she has had increased nausea and vomiting. This is her third time being seen in the emergency department. She was here yesterday and was given a prescription for Reglan, her vomiting was under control when she left the ED. However, today she began vomiting again. She did try to take a Zofran but is still feeling nauseous. She does admit to a history of marijuana use, she reports that she has not used in about 1 week. She denies fever, chills, vaginal bleeding, and urinary symptoms. She reports she has had pain across her abdomen over the past 3 days from vomiting that has not changed. PFSH <JOSE MANUEL Galindo - Last Filed: 06/30/24 17:31> [facility] Medical History OCD (obsessive compulsive disorder) ADD (attention deficit disorder) Depression with anxiety bipolar Home Medications ?Medication ?Instructions ?Recorded ?Last Taken ?Type docosahexaenoic acid 200 mg 200 mg PO DAILY 06/14/24 Unknown History capsule ( DHA) metoclopramide HCl 10 mg tablet 10 mg PO TID PRN PRN nausea and 06/29/24 Unknown Rx (Reglan) vomiting #20 tabs Allergy/AdvReac Type Severity Reaction Status Date / Time codeine Allergy HALLUCINATI Verified 06/30/24 16:01 ONS polyethylene glycol 3350 AdvReac Hives Verified 06/30/24 16:01 (From Miralax) Family History Other Colon cancer Hypertension Lung cancer Ovarian cancer Schizophrenia Uterine cancer bipolar Surgical History S/P tonsillectomy s/p finger surgery S/P appendectomy Social History adopted: No household members: family housing: house number of children: 1 current occupational status: employed current occupation: dancer current occupational exposures/hazards: No pets and animals: Yes pets and animals: cat(s) and dog(s) history of recent travel: No sexually active: Yes Smoking Status: Never smoker alcohol intake: never substance use type: marijuana caffeine: No what type of physical activity do you participate in: aerobics frequency: 5-6 times per week seatbelt use: never do you feel safe at home: Yes additional social history: Boyfriend- Johnnie ROS <JOSE MANUEL Galindo - Last Filed: 06/30/24 17:31> ROS ED Constitutional Constitutional ED: Denies chills or fever(s) Cardiovascular Cardiovascular: Denies chest pain Respiratory/Chest Respiratory/Chest: Denies cough or dyspnea Gastrointestinal Gastrointestinal: Reports abdominal pain, nausea and vomiting; Denies constipation or diarrhea Genitourinary Genitourinary ED: Denies dysuria, hematuria or urinary urgency Musculoskeletal Musculoskeletal: Denies arthralgias or myalgias Integumentary Denies rash Neurologic Neurologic: Denies weakness EXAM <JOSE MANUEL Galindo - Last Filed: 06/30/24 17:31> Physical Exam Const Vital Signs: 06/30/24 16:01 Temperature 97.8 F Temperature Source Temporal Pulse Rate 82 Respiratory Rate 18 Blood Pressure 105/71 Blood Pressure Mean 82 Pulse Ox 98 Oxygen Delivery Method Room Air Positive well nourished, well developed and no apparent distress General Appearance ED: well developed HEENT Reports normocephalic and head/scalp atraumatic Mouth ED: Yes moist mucous membranes normal Eyes PERRL and EOMs intact bilaterally Neck full ROM and supple Chest Wall inspection of chest normal Resp normal respiratory effort and clear to auscultation bilaterally Cardio regular rate and regular rhythm GI soft to palpation, non-tender, non-distended and no masses Back/Spine normal ROM and normal to inspection Extremity normal to inspection and full ROM Neuro oriented x3, CN's II-XII intact bilaterally, moves all extremities, no focal motor deficits and no sensory deficits noted Sensorium / Orientation: awake and alert Psych mental status grossly normal and thought process normal Skin no rashes or lesions noted and no wounds <Dr. Avni Palomares DO - Last Filed: 06/30/24 18:37> Physical Exam Const Vital Signs: 06/30/24 16:01 Temperature 97.8 F Temperature Source Temporal Pulse Rate 82 Respiratory Rate 18 Blood Pressure 105/71 Blood Pressure Mean 82 Pulse Ox 98 Oxygen Delivery Method Room Air [facility] <JOSE MANUEL Galindo - Last Filed: 06/30/24 17:31> [facility] Narrative Medical decision making narrative: Patient presenting due to nausea and vomiting she has had over the last several days. This is her third time being seen in the ED for this. She was seen here yesterday and was given Reglan, her vomiting was under control until this morning when she began vomiting again. Her abdomen is soft and nontender. Labs will be obtained to assess for electrolyte abnormality, leukocytosis, and UTI. Patient was given IV fluids and Reglan. Her WBC is 13.2, likely due to vomiting, potassium is 3.2, patient did request to be discharged prior to receiving her urine results or potassium replacement. She will be leaving AMA, her behavioral health clinician has to leave and she needs to be at home with her daughter. She does understand the risks of leaving and is capable of making this decision. Strict return instructions were given. Lab Data Attestation: I reviewed the patient's lab results. Labs: Laboratory Results - last 24 hr 06/30/24 06/30/24 16:29 16:49 WBC 13.2 H RBC 4.33 Hgb 12.8 Hct 37.6 MCV 86.8 MCH 29.6 MCHC 34.0 RDW Std Deviation 42.0 RDW Coeff of Rodney 13.2 Plt Count 267 MPV 12.4 H Immature Gran % (Auto) 0.500 Neut % (Auto) 83.2 H Lymph % (Auto) 9.0 L Spencer % (Auto) 6.8 Eos % (Auto) 0.2 Baso % (Auto) 0.3 Absolute Neuts (auto) 11.0 H Absolute Lymphs (auto) 1.18 Nucleated RBC % 0 Sodium 137 Potassium 3.2 L Chloride 105 Carbon Dioxide 19.0 L Anion Gap 13 BUN 6 L Creatinine 0.48 L Estim Creat Clear Calc 132.05 Est GFR (MDRD) Af Amer 208 Est GFR (MDRD) Non-Af 172 BUN/Creatinine Ratio 12.6 Glucose 105 Calcium 9.2 Urine Color Yellow Urine Clarity Sl. Cloudy Urine pH 6.0 Ur Specific [place] 1.025 Urine Protein 30 H Urine Glucose (UA) Normal Urine Ketones 150 A* Urine Occult Blood Negative Urine Nitrite Negative Urine Bilirubin 1 H Urine Urobilinogen 1 H Ur Leukocyte Esterase 25 H Urine RBC 0-5 SEEN Urine WBC 5-10 SEEN Ur Squamous Epith Cells 5-10 SEEN Urine Bacteria 1+ Urine Mucus 0 SEEN <Dr. Avni Palomares, DO - Last Filed: 06/30/24 18:37> [facility] Narrative Medical decision making narrative: Patient presenting due to nausea and vomiting she has had over the last several days. This is her third time being seen in the ED for this. She was seen here yesterday and was given Reglan, her vomiting was under control until this morning when she began vomiting again. Her abdomen is soft and nontender. Labs will be obtained to assess for electrolyte abnormality, leukocytosis, and UTI. Patient was given IV fluids and Reglan. Her WBC is 13.2, likely due to vomiting, potassium is 3.2, patient did request to be discharged prior to receiving her urine results or potassium replacement. She will be leaving AMA, her behavioral health clinician has to leave and she needs to be at home with her daughter. She does understand the risks of leaving and is capable of making this decision. Strict return instructions were given. I have personally performed a face to face assessment of the patient and have reviewed the MARK note. I personally made/approved the management plan and take responsibility for the patient management. I performed a substantive portion of the visit including all aspects of the following. My cash findings include: G4, P1 reports 15-week gestation positive at 13 weeks seen in her OB o ffice followed by Dr. Tavarez. Nausea and vomiting last 2 days. History of hyperemesis gravidarum with her other pregnancies. No vaginal bleeding. No dysuria. Prior to my evaluation nursing reported patient wanted to leave AMA. I evaluated the patient she states since medications no emesis. She states her sitter cannot be there therefore she had to go home to her daughter. Labs are still pending for return. Discussed risk factors. Patient understands patient pertinent x 3. She signed out against medical vice and will follow-up with her OB team. Late review of labs ketones in the urine creatinine 0.48 hemoglobin 12.8. Lab Data Labs: Laboratory Results - last 24 hr 06/30/24 06/30/24 16:29 16:49 WBC 13.2 H RBC 4.33 Hgb 12.8 Hct 37.6 MCV 86.8 MCH 29.6 MCHC 34.0 RDW Std Deviation 42.0 RDW Coeff of Rodney 13.2 Plt Count 267 MPV 12.4 H Immature Gran % (Auto) 0.500 Neut % (Auto) 83.2 H Lymph % (Auto) 9.0 L Spencer % (Auto) 6.8 Eos % (Auto) 0.2 Baso % (Auto) 0.3 Absolute Neuts (auto) 11.0 H Absolute Lymphs (auto) 1.18 Nucleated RBC % 0 Sodium 137 Potassium 3.2 L Chloride 105 Carbon Dioxide 19.0 L Anion Gap 13 BUN 6 L Creatinine 0.48 L Estim Creat Clear Calc 132.05 Est GFR (MDRD) Af Amer 208 Est GFR (MDRD) Non-Af 172 BUN/Creatinine Ratio 12.6 Glucose 105 Calcium 9.2 Urine Color Yellow Urine Clarity Sl. Cloudy Urine pH 6.0 Ur Specific [place] 1.025 Urine Protein 30 H Urine Glucose (UA) Normal Urine Ketones 150 A* Urine Occult Blood Negative Urine Nitrite Negative Urine Bilirubin 1 H Urine Urobilinogen 1 H Ur Leukocyte Esterase 25 H Urine RBC 0-5 SEEN Urine WBC 5-10 SEEN Ur Squamous Epith Cells 5-10 SEEN Urine Bacteria 1+ Urine Mucus 0 SEEN Discharge Plan Triage Chief Complaint: Nausea/Vomiting ED Midlevel Provider: Carlita Rivera ED Provider: Avni Palomares Dx/Rx/DC Orders Clinical Impression: Marijuana abuse, Nausea and vomiting during Prescriptions: No Action DHA 200 mg capsule 200 mg PO DAILY metoclopramide HCl [Reglan] 10 mg tablet 10 mg PO TID PRN PRN (Reason: nausea and vomiting) Qty: 20 0RF Primary Care Provider: Care Physician,No Primary Referrals: Care Physician,No Primary [Primary Care Provider] - Print Language: Spanish Disposition Disposition: Against Medical Advice Discharge Date/Time: 06/30/24 17:14
== END 2024-06-30 17:14 | disposition left against medical advice (07) ==
PROVIDERS: Physician Assistant; Emergency Provider Emergency Medicine; Visit Provider Emergency Medicine
DX: O21.9 Vomiting of pregnancy, unspecified (principal); O99.322 Drug use complicating pregnancy, second trimester; F12.10 Cannabis abuse, uncomplicated; Z53.29 Procedure and treatment not carried out because of patient's decision for other reasons; Z3A.00 Weeks of gestation of pregnancy not specified
CPT/HCPCS: 80048; 81001; 85025; 96361; 96374; 99283; J7030; A4216

== ENCOUNTER → 2024-08-21 | Outpatient (CLI) | payer SELFPAY ==
[2024-08-21 17:11] LABS: Absolute Lymphocyte Count 1.13 X10^3/uL (0.83-4.51); Absolute Neutrophil Count 6.2 X10^3/uL (2.0-7.7); Basophil# 0.04 X10^3/uL; Basophil% 0.5 % (0-1); Eosinophil# 0.04 X10^3/uL; Eosinophils% 0.5 % (0-5); Hemoglobin 12.1 g/dL (12.0-15.0); Lymphocyte # 1.13 X10^3/ul (0.83-4.51); Lymphocyte % 13.9 % (19-41); Mean Corp Hgb Conc 32.7 g/dL (32-36); Mean Corpuscular Hgb 29.8 pg (27.0-32.0); Mean Corpuscular Volume 91.1 fL (81-99); Monocyte# 0.68 X10^3/uL; Monocyte% 8.4 % (0-10); NRBC Flagged by Analyzer 0 % (0-5); Neutrophil # 6.16 X10^3/uL (2.7-7.7); Neutrophil % 75.7 % (47-70); Platelet Count 250 K/mm3 (150-450); RBC Distribution Width CV 13.8 % (11.6-14.6); RBC Distribution Width SD 46.2 fl (35.1-43.9); Red Blood Count 4.06 M/mm3 (4.2-5.4); White Blood Count 8.1 K/mm3 (4.4-11.0)
[2024-08-27 17:07] LABS: HIV 1/0/2 SCREEN Non Reactive (Non Reactive); Syphilis Antibodies Non Reactive (Non Reactive)
[2024-08-28 05:07] LABS: HEPATITIS B SURFACE AG - REF Negative (Negative)
== END | disposition home or self-care (01) ==
PROVIDERS: Advanced Practice Midwife; Referring Provider Obstetrics & Gynecology; Visit Provider Obstetrics & Gynecology
DX: O09.90 Supervision of high risk pregnancy, unspecified, unspecified trimester (principal); N96 Recurrent pregnancy loss; Z3A.00 Weeks of gestation of pregnancy not specified
CPT/HCPCS: 36415; 85025; 86703; 86762; 86780; 86803; 86850; 86900; 86901; 87340

== ENCOUNTER → 2024-09-18 | Outpatient (CLI) | payer SELFPAY ==
[2024-09-18 17:05] LABS: Glucose Challenge Gest 1H 50g 162 mg/dL (70-140)
[2024-09-21 04:07] LABS: Anti-Cardiolipin Ab, IgG, Qn < 9 GPL U/mL (0-14); Anti-Cardiolipin Ab, IgM, Qn 13 MPL U/mL (0-12); Beta-2-Glycoprotein I IgA 13 (0-25); Beta-2-Glycoprotein I IgG <9 (0-20); Beta-2-Glycoprotein I IgM <9 (0-32); Dilute Prothrombin Time (dPT) 32.6 sec (0.0-47.6); Dilute Russell Viper Venom 31.1 sec (0.0-47.0); Interpretation Comment: (.); dPT Confirm Ratio 1.12 Ratio (0.00-1.34)
== END | disposition home or self-care (01) ==
LOC: BWCLAB 16:19
PROVIDERS: Advanced Practice Midwife; Obstetrics & Gynecology; Referring Provider Nurse Practitioner Women's Health; Visit Provider Nurse Practitioner Women's Health
DX: O09.90 Supervision of high risk pregnancy, unspecified, unspecified trimester (principal); N96 Recurrent pregnancy loss; Z13.1 Encounter for screening for diabetes mellitus; Z3A.00 Weeks of gestation of pregnancy not specified; O99.891 Other specified diseases and conditions complicating pregnancy
CPT/HCPCS: 36415; 82950; 86146; 86147

== ENCOUNTER → 2024-09-23 | Outpatient (CLI) | payer SELFPAY ==
[2024-09-23 10:24] LABS: Bedside Glucose 85 mg/dL (74-106)
== END | disposition home or self-care (01) ==
LOC: LAB 09:54
PROVIDERS: Referring Provider Obstetrics & Gynecology; Visit Provider Obstetrics & Gynecology
DX: Z13.1 Encounter for screening for diabetes mellitus (principal)
CPT/HCPCS: 82962

== ENCOUNTER → 2024-11-11 | Outpatient (CLI) | payer SELFPAY ==
[2024-11-11 17:09] LABS: Amphetamine Urine VISTA NEGATIVE (<1000 ng/mL); Barbiturate Urine VISTA NEGATIVE (< 200 ng/mL); Benzodiazepine Urine VISTA NEGATIVE (< 200 ng/mL); Cocaine Urine VISTA NEGATIVE (< 300 ng/mL); Ecstacy Urine VISTA NEGATIVE (< 500 ng/mL); Methadone Urine VISTA NEGATIVE (< 300 ng/mL); PCP Urine VISTA NEGATIVE (< 25 ng/mL); THC Urine VISTA POSITIVE (< 50 ng/mL); Vista UDS pH Range 6
== END | disposition home or self-care (01) ==
LOC: LABSPEC 14:42
PROVIDERS: Nurse Practitioner Women's Health; Referring Provider Advanced Practice Midwife; Visit Provider Advanced Practice Midwife
DX: O99.323 Drug use complicating pregnancy, third trimester (principal); F12.10 Cannabis abuse, uncomplicated; Z3A.34 34 weeks gestation of pregnancy
CPT/HCPCS: 80307

== ENCOUNTER → 2024-11-26 | Outpatient (CLI) | payer SELFPAY | END | disposition home or self-care (01) | LOC: LABSPEC 16:36 | PROVIDERS: Referring Provider Obstetrics & Gynecology; Visit Provider Obstetrics & Gynecology | DX: O09.90 Supervision of high risk pregnancy, unspecified, unspecified trimester (principal); Z3A.00 Weeks of gestation of pregnancy not specified | CPT/HCPCS: 87081 ==

== ENCOUNTER → 2024-12-06 | Outpatient (CLI) | payer MEDICAID, SELFPAY ==
--- NOTE | 2024-12-06 13:07 | US_ITS ---
PROCEDURE: OB LIMITED WITH BIOMETRICS REASON FOR EXAM: growth TECHNIQUE: Transabdominal obstetrical imaging was performed on 12/06/2024 COMPARISON: No prior examinations are currently available for comparison. FINDINGS: Number: 1 Position: Cephalic Placental Position: Grade 2 anterior placenta. Placental Abnormalities: None. Cervical length: Nonvisualized. DIMENSIONS: Biparietal Diameter: 9.37 cm/corresponds to 38 weeks and 1 day Head Circumference: 33.42 cm/corresponds to 39 weeks and 2 days Abdominal Circumference: 36.12 cm/corresponds to 40 weeks and 0 days Femur Length: 7.03 cm/corresponds to 36 weeks and 0 days ESTIMATED WEIGHT: 3625 g +/-544 g ESTIMATED WEIGHT PERCENTILE (24+ weeks): 82nd percentile ESTIMATED GESTATIONAL AGE: Baseline: 38 weeks and 0 days By Ultrasound: 38 weeks and 1 day ESTIMATED DATE OF DELIVERY: Baseline: 12/20/2024 By Ultrasound: 12/19/2024 BIOPHYSICAL ASSESSMENT: Amniotic Fluid Volume: Largest vertical pocket measures 5.6 cm. Amniotic Fluid Index: 14.6 (8-24 cm normal range) Cardiac Motion: 141 beats per minute. Bilateral adnexa are not well visualized. US/OB Limited With Biometrics IMPRESSION: 1. Single intrauterine in vertex presentation. heart tones doreen ured at 141 beats per minute. 2. Ultrasonic measurements correspond to 38 weeks and 1 day for an HAZEL of 12/19/2024. 3. Estimated weight corresponds to 82nd percentile [facility]
== END | disposition home or self-care (01) ==
LOC: US 13:07
PROVIDERS: Referring Provider Nurse Practitioner Women's Health; Visit Provider Nurse Practitioner Women's Health
DX: O24.410 Gestational diabetes mellitus in pregnancy, diet controlled (principal); Z3A.36 36 weeks gestation of pregnancy
CPT/HCPCS: 76816

== ENCOUNTER 2024-12-08 03:20 | Outpatient (CLI) | payer MEDICAID, SELFPAY ==
[2024-12-08 03:37] VITALS: BP 125/79; PULSE 103; O2SAT 97
[2024-12-08 03:41] VITALS: BMI 29.0
[2024-12-08 03:45] VITALS: RESP 24; TEMP 36.6
[2024-12-08 04:23] LABS: ROM Internal Control Test YES-OK TO RESULT pt. (Internal QC); ROM Patient Test Negative (Negative); Record Kit Lot#, ROM+ K2451
--- NOTE | 2024-12-08 08:55 | OB.TRI.HP_ITS ---
HPI - General General Date of Service: 12/08/24 HPI Narrative SHANNAN ESTEBAN, is a 24 F who presents at 38.2 with questionable gush of fluid. none further. good active fetus. no vb. irregular non painful ctx. Maternal Data Information HAZEL Calculator Estimated Delivery Date Method Current WG Current Estimate 12/20/24 Ultrasound #1 38w 2d Other Estimates 01/16/25 LMP (Uncertain) 34w 3d PFSH PFSH Medical History OCD (obsessive compulsive disorder) ADD (attention deficit disorder) Depression with anxiety bipolar Home Medications ?Medication ?Instructions ?Recorded ?Last Taken ?Type docosahexaenoic acid 200 mg 200 mg PO DAILY 06/14/24 0 12/07/24 08:00 History capsule ( DHA) blood sugar diagnostic (Blood #120 ea 09/23/24 Unknown Rx Glucose Test strips) blood-glucose meter #1 ea 09/23/24 Unknown Rx lancets #200 ea 09/23/24 Unknown Rx Allergy/AdvReac Type Severity Reaction Status Date / Time promethazine (From Phenergan) Allergy Severe Other Verified 12/08/24 03:43 codeine Allergy HALLUCINATI Verified 12/08/24 03:42 ONS polyethylene glycol 3350 AdvReac Hives Verified 12/08/24 03:42 (From Miralax) Family History Other Colon cancer Hypertension Lung cancer Ovarian cancer Schizophrenia Uterine cancer bipolar Surgical History S/P tonsillectomy s/p finger surgery S/P appendectomy Social History adopted: No household members: family housing: house number of children: 1 current occupational status: employed current occupation: dancer current occupational exposures/hazards: No pets and animals: Yes pets and animals: cat(s) and dog(s) history of recent travel: No sexually active: Yes Smoking Status: Never smoker alcohol intake: never substance use type: marijuana caffeine: No what type of physical activity do you participate in: aerobics frequency: 5-6 times per week seatbelt use: never do you feel safe at home: Yes additional social history: Boyfriend- Johnnie History 4 Elective abortions Hx Para 1 Spontaneous abortions 2 Hx # Term Pregnancies Ectopic pregnancies Hx # Pregnancies Multiple births # of living children 1 Past Pregnancies Del. Date Name GA/Weeks Outcome Route Bth Weight Infant Gen Labor Lgth Anesthesia Del Joseatn Provider FOB 01/04/21 Zaria 39 live - full term 7lbs 7oz Female epidural [facility] Delivery Date: 01/04/21 Last Updated by: Jennifer Irvin IoL chronic decreased FM Visit Details Expected Delivery Route/Plan Labor Preferences- CB/BF classes: no labor support person: Lora Blair labor intervention preferences: [] pain management options preferred: epidural cut cord/dad catch: Lora cut cord : bottle PP control planned: discussed discussed possible routes of delivery and associated risks: [] special requests: [] Plans Covid status: [] Flu vaccine: declines Tdap vaccine: [] Rhogam: NA LARC form signed: yes Problem list reviewed and updated with the most current plan of care details and appropriate orders placed. Relevant counseling for the gestational age provided. Continue routine care and follow up unless otherwise noted in visit notes/problem list details OB Flowsheet Initial Weight: Not Recorded Date -?-?-?-?-?-?-?-?-?-?-?-?- EGA Weight BP Urine Prot -?-?-?-?-?-?-?-?-?-?-?-?- Glucose FHR FuHt Pres Dilation -?-?-?-?-?-?-?-?-?-?-?-?- Effaced St Visit Note 06/14/24 -?-?-?-?-?-?-?-?-?-?-?-?- 13w 0d 107 lb 4 oz 105/69 -?-?-?-?-?-?-?-?-?-?-?-?- 153 -?-?-?-?-?-?-?-?-?-?-?-?- KW- CRL 61mm. GA 13.0 weeks. Accepts NIPT and carrier KW- CRL 61mm. GA 13.0 weeks. Accepts NIPT and carrier. encouraged to stop smoking 07/15/24 -?-?-?-?-?-?-?-?-?-?-?-?- 17w 3d 107 lb 109/67 -?-?-?-?-?-?-?-?-?-?-?-?- 145 -?-?-?-?-?-?-?-?-?-?-?-?- JV- no cramping, spotting, or complaints. has anatomy ultrasound ordered for 07/30. did not do NIPT. 08/21/24 -?-?-?-?-?-?-?-?--?-?-?-?- 22w 5d 117 lb 8 oz 111/67 -?-?-?-?-?-?-?-?-?-?-?-?- 153 -?-?-?-?-?-?-?-?-?-?-?-?- JV- no lof, vagi nal bleeding, or dec fm. declines flu vaccine. needs new ob labs still and will do that today. 09/18/24 -?-?-?-?-?-?-?-?-?-?-?-?- 26w 5d 127 lb 2 oz 110/70 Nega tive -?-?-?-?-?-?-?-?-?-?-?-?- Negative 134 26 -?-?-?-?-?-?-?-?-?-?-?-?- MH-No VB, LOF. G ood Fm. 3rd trim labs pending 10/01/24 -?-?-?-?-?-?-?-?-?-?-?-?- 28w 4d 127 lb 4 oz 128/75 -?-?-?-?-?-?-?-?-?-?-?-?- 140 28 -?-?-?-?-?-?-?-?-?-?-?-?- SM- checking sug ars most WNL= will continue to check 10/16/24 -?-?-?-?-?-?-?-?-?-?-?-?- 30w 5d 132 lb 8 oz 110/60 Nega tive -?-?-?-?-?-?-?-?-?-?-?-?- Negative 147 30 -?-?-?-?-?-?-?-?-?-?-?-?- MH-No VB, LOF. G ood FM. Reviewed glucose/stable 11/11/24 -?-?-?-?-?-?-?-?-?-?-?-?- 34w 3d 140 lb 4 oz 110/68 Nega tive -?-?-?-?-?-?-?-?-?-?-?-?- Negative 134 33 -?-?-?-?-?-?-?-?-?-?-?-?- MH-No VB, lof. G ood FM. Just checked glucose 7 days. abnormals noted. Reviewed testing times, food options eliza lunch when always high. Consult wilda berrios. Tox screen 11/21/24 -?-?-?-?-?-?-?-?-?-?-?-?- 35w 6d 141 lb 8 oz 114/75 Nega tive -?-?-?-?-?-?-?-?-?-?-?-?- Negative 140 35 -?-?--?-?-?-?-?-?-?-?-?-?- SM- met with nut ritionist, some elevated BS, overall WNL, no vb lof good fm nor egular ctx 11/26/24 -?-?-?-?-?-?-?-?-?-?-?-?- 36w 4d 145 lb 4 oz 120/76 -?-?-?-?-?-?-?-?-?-?-?-?- 144 36 Cephalic 1 -?-?-?-?-?-?-?-?-?-?-?-?- 30 -3 JV- gbs co llected. no complaints. glucose log reviewed and normal. only a couple of 2 hr pp over 120 (122 or 121). growth scan to be done soon. 12/06/24 -?-?-?-?-?-?-?-?-?-?-?-?- 38w 0d 144 lb 110/69 Negative -?-?-?-?-?-?-?-?-?-?-?-?- Negative 140 38 3 -?-?-?-?-?-?-?-?-?-?-?-?- 60 -2 LC- 3625g EFW on todays growth scan. mostly normal pp(121-122 if over), all normal fasting. 39 week IOL set up. NST FHR Rate Baby A Baseline: 130 Variability:: Moderate Accelerations:: 15 x 15 Decelerations:: None NST Reactive:: Yes FHR Category:: Category I Uterine Activity:: irreg Assessment & Plan (1) No leakage of amniotic fluid into vagina: COMMENT: rom neg. no change in cervical exam. d/c home PLAN: Plan Patient presents for triage evaluation secondary to rule out ROM FHT: Moderate variability reactive no decelerations category I tracing [place]: irregular Contractions Assessment and plan: Reactive NST, reassuring maternal and status patient discharged to home to follow-up in office prn. See problem list details for additional plan information. Charges/Coding Procedures Urinary/Genital [id number]: [id number] non-stress test Interp
== END 2024-12-08 05:10 | disposition home or self-care (01) ==
LOC: WPOUT 03:23 → WP 03:23
PROVIDERS: Referring Provider Registered Nurse; Visit Provider Registered Nurse
DX: Z03.71 Encounter for suspected problem with amniotic cavity and membrane ruled out (principal); Z3A.38 38 weeks gestation of pregnancy
CPT/HCPCS: 59025; 59050; 84112; 99221; G0378

== ENCOUNTER → 2024-12-11 | Outpatient (CLI) | payer MEDICAID, SELFPAY ==
[2024-12-11 16:40] VITALS: BMI 28.6
[2024-12-11 17:09] VITALS: RESP 16
[2024-12-11 17:10] VITALS: BP 121/70; PULSE 89
[2024-12-11 17:22] LABS: ROM Internal Control Test YES-OK TO RESULT pt. (Internal QC); ROM Patient Test Negative (Negative)
[2024-12-11 17:23] LABS: Record Kit Lot#, ROM+ K2871
--- NOTE | 2024-12-16 14:15 | OB.TRI.PN ---
Progress Notes Date of Service: 12/11/24 Progress Note: Patient presents for triage evaluation secondary to contractions possible ROM FHT: 135 Moderate variability reactive no decelerations category I tracing [place]: irregular Contractions Assessment and plan: false labor amnionitc membranes intact 38 weeks Reactive NST, reassuring maternal and status patient discharged to home to follow-up as scheduled. no cerivcla change rom plus negative. See problem list details for additional plan information. Laboratory Studies: Laboratory Tests 12/11/24 Range/Units 16:45 Vag Amniotic Fld Detect Negative (Negative) Charges/Coding Procedures Urinary/Genital 52xxx-59xxx: [id number] non-stress test Interp Assessment & Plan (1) Supervision of high risk , antepartum: COMMENT: PRR HAZEL 12/20/24 girl Rosanne Jerez (sister-8 years old-has custody) , BF Johnnie (2) : QUALIFIERS: Weeks of gestation: 38 weeks Qualified Code(s): Z3A.38 - 38 weeks gestation of COMMENT: GBS neg, nl anatomy, nl growth
== END | disposition home or self-care (01) ==
LOC: WPOUT 16:36 → WP 16:36
PROVIDERS: Referring Provider Obstetrics & Gynecology; Visit Provider Obstetrics & Gynecology
DX: O47.1 False labor at or after 37 completed weeks of gestation (principal); Z3A.38 38 weeks gestation of pregnancy; O09.93 Supervision of high risk pregnancy, unspecified, third trimester
CPT/HCPCS: 59025; 59050; 84112; 99221; G0378

== ENCOUNTER 2024-12-13 03:53 | Inpatient (IN) | payer MEDICAID, SELFPAY ==
[2024-12-13] VITALS (73 sets, daily range): BP systolic 91–135; BP diastolic 57–80; PULSE 87–145; RESP 16–18; TEMP 36.4–37; O2SAT 83–100; BMI 29.3
[2024-12-13] MEDS: Lactated Ringers 1,000 ML 999 ML IV (04:20)
[2024-12-13 04:48] LABS: Absolute Lymphocyte Count 2.67 X10^3/uL (0.83-4.51); Absolute Neutrophil Count 9.5 X10^3/uL (2.0-7.7); Basophil% 0.7 % (0-1); Eosinophils% 1.4 % (0-5); Hematocrit 34.1 % (37-47); Hemoglobin 11.1 g/dL (12.0-15.0); Lymphocyte # 2.67 X10^3/ul (0.83-4.51); Lymphocyte % 18.8 % (19-41); Mean Corp Hgb Conc 32.6 g/dL (32-36); Mean Corpuscular Hgb 26.4 pg (27.0-32.0); Mean Corpuscular Volume 81.2 fL (81-99); Mean Platelet Vol. 12.7 fl (6.2-12.0); Monocyte# 1.51 X10^3/uL; Monocyte% 10.6 % (0-10); NRBC Flagged by Analyzer 0 % (0-5); Neutrophil # 9.52 X10^3/uL (2.7-7.7); Neutrophil % 66.8 % (47-70); POSITIVE COUNT YES; POSITIVE DIFFERENTIAL YES; RBC Distribution Width CV 15.6 % (11.6-14.6); RBC Distribution Width SD 45.5 fl (35.1-43.9); White Blood Count 14.2 K/mm3 (4.4-11.0)
[2024-12-13 04:49] LABS: Bedside Glucose 111 mg/dL (74-106)
[2024-12-13 05:04] LABS: Syphilis Antibodies Non-reactive
[2024-12-13] MEDS: Lactated Ringers 1,000 ML 200 ML IV (05:05)
[2024-12-13 05:29] LABS: Differential Indicated SCAN CRITERIA MET
[2024-12-13] MEDS: fentaNYL-bupivacaine (epidural) 100 ML BAG EPIDURAL (05:30)
[2024-12-13 05:34] LABS: Platelet Count 238 K/mm3 (150-450)
[2024-12-13 05:35] LABS: Differential Comment SCANNED
[2024-12-13 05:59] LABS: Bedside Glucose 114 mg/dL (74-106)
--- NOTE | 2024-12-13 06:23 | HP.PCM.OB_ITS ---
HPI - General General Date of Admission: 12/13/24 HPI Narrative SHANNAN ESTEBAN, is a 24 y/o @ 39 weeks 0 days who presents to L&D with rupture of membranes since 11pm and frequent contractions. She was found to be 5 cm at 3:30 this am upon arrival and requesting an epidural. Maternal Data Information HAZEL Calculator Estimated Delivery Date Method Current WG Current Estimate 12/20/24 Ultrasound #1 39w 0d Other Estimates 01/16/25 LMP (Uncertain) 35w 1d PFSH [facility] Medical History OCD (obsessive compulsive disorder) ADD (attention deficit disorder) Depression with anxiety bipolar Home Medications ?Medication ?Instructions ?Recorded ?Last Taken ?Type docosahexaenoic acid 200 mg 200 mg PO DAILY 06/14/24 12/12/24 08:00 History capsule ( DHA) 200 mg blood sugar diagnostic (Blood #120 ea 09/23/24 Unknown Rx Glucose Test strips) blood-glucose meter #1 ea 09/23/24 Unknown Rx lancets #200 ea 09/23/24 Unknown Rx Allergy/AdvReac Type Severity Reaction Status Date / Time promethazine (From Phenergan) Allergy Severe Other Verified 12/13/24 04:14 codeine Allergy HALLUCINATI Verified 12/13/24 04:14 ONS polyethylene glycol 3350 AdvReac Hives Verified 12/13/24 04:14 (From Miralax) Family History Other Colon cancer Hypertension Lung cancer Ovarian cancer Schizophrenia Uterine cancer bipolar Surgical History S/P tonsillectomy s/p finger surgery S/P appendectomy Social History adopted: No household members: family housing: house number of children: 1 current occupational status: employed current occupation: dancer current occupational exposures/hazards: No pets and animals: Yes pets and animals: cat(s) and dog(s) history of recent travel: No sexually active: Yes Smoking Status: Never smoker alcohol intake: never substance use type: marijuana caffeine: No what type of physical activity do you participate in: aerobics frequency: 5-6 times per week seatbelt use: never do you feel safe at home: Yes additional social history: Boyfriend- Johnnie History 4 Elective abortions Hx Para 1 Spontaneous abortions 2 Hx # Term Pregnancies Ectopic pregnancies Hx # Pregnancies Multiple births # of living children 1 Past Pregnancies Del. Date Name GA/Weeks Outcome Route Bth Weight Infant Gen Labor Lgth Anesthesia Del Locatn Provider FOB 01/04/21 Zaria 39 live - full term 7lbs 7oz Female epidural [facility] Delivery Date: 01/04/21 Last Updated by: Jennifer Irvin IoL chronic decreased FM Visit Details Expected Delivery Route/Plan Labor Preferences- CB/BF classes: no labor support person: Lora Blair labor intervention preferences: [] pain management options preferred: epidural cut cord/dad catch: Lora cut cord : bottle PP control planned: discussed discussed possible routes of delivery and associated risks: [] special requests: [] Plans Covid status: [] Flu vaccine: declines Tdap vaccine: [] Rhogam: NA LARC form signed: yes Problem list reviewed and updated with the most current plan of care details and appropriate orders placed. Relevant counseling for the gestational age provided. Continue routine care and follow up unless otherwise noted in visit notes/problem list details OB Flowsheet Initial Weight: Not Recorded Date -?-?-?-?-?-?-?-?-?-?-?-?- EGA Weight BP Urine Prot -?-?-?-?-?-?-?-?-?-?-?-?- Glucose FHR FuHt Pres Dilation -?-?-?-?-?-?-?-?-?-?-?-?- Effaced St Visit Note 06/14/24 -?-?-?-?-?-?-?-?-?-?-?-?- 13w 0d 107 lb 4 oz 105/69 -?-?-?-?-?-?-?-?-?-?-?-?- 153 -?-?-?-?-?--?-?-?-?-?-?-?- KW- CRL 61mm. GA 13.0 weeks. Accepts NIPT and carrier KW- CRL 61mm. GA 13.0 weeks. Accepts NIPT and carrier. encouraged to stop smoking 07/15/24 -?-?-?-?-?--?-?-?-?-?-?-?- 17w 3d 107 lb 109/67 -?-?-?-?-?-?-?-?-?-?-?-?- 145 -?-?-?-?-?-?-?-?-?-?-?-?- JV- no cramping, spotting, or complaints. has anatomy ultrasound ordered for 07/30. did not do NIPT. 08/21/24 -?-?-?-?-?-?-?-?-?-?-?-?- 22w 5d 117 lb 8 oz 111/67 -?-?-?-?-?-?-?-?-?-?-?-?- 153 -?-?-?-?-?-?-?-?-?-?-?-?- JV- no lof, vagi nal bleeding, or dec fm. declines flu vaccine. needs new ob labs still and will do that today. 09/18/24 -?-?-?-?-?-?-?-?-?-?-?-?- 26w 5d 127 lb 2 oz 110/70 Nega tive -?-?-?-?-?-?-?-?-?-?-?-?- Negative 134 26 -?-?-?-?-?-?-?-?-?-?-?-?- MH-No VB, LOF. G ood Fm. 3rd trim labs pending 10/01/24 -?-?-?-?-?-?-?-?-?-?-?-?- 28w 4d 127 lb 4 oz 128/75 -?-?-?-?-?-?-?-?-?-?-?-?- 140 28 -?-?-?-?-?-?-?-?-?-?-?-?- SM- checking sug ars most WNL= will continue to check 10/16/24 -?-?-?-?-?-?-?-?-?-?-?-?- 30w 5d 132 lb 8 oz 110/60 Nega tive -?-?-?-?-?-?-?-?-?-?-?-?- Negative 147 30 -?-?-?-?-?-?-?-?-?-?-?-?- MH-No VB, LOF. G ood FM. Reviewed glucose/stable 11/11/24 -?-?-?-?-?-?-?-?-?-?-?-?- 34w 3d 140 lb 4 oz 110/68 Nega tive -?-?-?-?-?-?-?-?-?-?-?-?- Negative 134 33 -?-?-?-?-?-?-?-?-?-?-?-?- MH-No VB, lof. G ood FM. Just checked glucose 7 days. abnormals noted. Reviewed testing times, food options eliza lunch when always high. Consult dietitian. Tox screen 11/21/24 -?-?-?-?-?-?-?-?-?-?-?-?- 35w 6d 141 lb 8 oz 114/75 Nega tive -?-?-?-?-?-?-?-?-?-?-?-?- Negative 140 35 -?-?-?-?-?-?-?-?-?-?-?-?- SM- met with nut ritionist, some elevated BS, overall WNL, no vb lof good fm nor egular ctx 11/26/24 -?-?-?-?-?-?-?-?-?-?-?-?- 36w 4d 145 lb 4 oz 120/76 -?-?-?-?-?-?-?-?-?-?-?-?- 144 36 Cephalic 1 -?-?-?-?-?-?-?-?-?-?-?-?- 30 -3 JV- gbs co llected. no complaints. glucose log reviewed and normal. only a couple of 2 hr pp over 120 (122 or 121). growth scan to be done soon. 12/06/24 -?-?--?-?-?-?-?-?-?-?-?-?- 38w 0d 144 lb 110/69 Negative -?-?-?-?-?-?-?-?-?-?-?-?- Negative 140 38 3 -?-?-?-?-?-?-?-?-?-?-?-?- 60 -2 LC- 3625g EFW on todays growth scan. mostly normal pp(121-122 if over), all normal fasting. 39 week IOL set up. 12/11/24 -?-?-?-?-?-?-?-?-?-?-?-?- 38w 5d 144 lb 114/69 Negative -?-?-?-?-?-?-?-?-?-?-?-?- Negative 140 38 Cephalic 3 -?-?-?-?-?-?-?-?-?-?-?-?- 70 -2 SM- no vb lof good fm no regular ctx membranes swept IOL monday ROS Constitutional Constitutional: Denies change in weight, fatigue, fever(s), headache(s), poor appetite or weakness Eyes Eyes: Denies blurry vision, change in vision, seeing flashes or spots in vision ENT HEENT: Denies dizziness, headache(s), loss taste/smell or sore throat Cardiovascular Cardiovascular: Denies chest pain, dizziness, dyspnea, irregular heart rhythm, leg edema, palpitations, rapid heart rate or vomiting Respiratory/Chest Respiratory/Chest: Denies chest tightness, cough, dyspnea or breast pain Gastrointestinal Gastrointestinal: Denies abdominal pain, anorexia, constipation, cramping, diarrhea, hemorrhoids, vomiting or weight changes Genitourinary Genitourinary: Denies dysuria, flank pain, genital lesions, genital pain, urinary frequency or urinary urgency Musculoskeletal Musculoskeletal: Denies back pain, difficulty walking, joint pain, limited range of motion, muscle cramps or numbness Integumentary Integumentary: Denies lesions or unusual bruising Neurologic Neurologic: Denies abnormal movements, abnormal speech, dizziness, numbness, seizure-like activity or syncope Psychiatric Psychiatric: Denies anxiety, behavioral changes, change in appetite, change in libido, cognitive impairment, confusion, depression, difficulty concentrating, hallucinations or suicidal thoughts Endocrine Endocrinology: Denies excessive sweating, polydipsia or polyuria Hematologic/Lymphatic Hematologic/Lymphatic: Denies easy bleeding, easy bruising or lymphadenopathy Allergic/Immunologic Allergic/Immunologic: Denies itchy eyes, lip swelling, seasonal rhinorrhea, rhinitis, throat swelling, tongue swelling, eczemia, wheezing or asthma Vital Signs Vital Signs Vital Signs: 12/13/24 04:06 12/13/24 04:06 12/13/24 04:06 Temperature 98.6 F Temperature Source Temporal Pulse Rate Respiratory Rate 18 Blood Pressure BP Systolic BP Diastolic Pulse Ox 12/13/24 04:07 12/13/24 04:07 12/13/24 04:07 Temperature Temperature Source Pulse Rate 108 H Respiratory Rate Blood Pressure 111/69 BP Systolic 111 BP Diastolic 69 Pulse Ox 100 12/13/24 04:20 12/13/24 04:20 12/13/24 05:03 Temperature Temperature Source Pulse Rate 91 Respiratory Rate Blood Pressure 117/69 BP Systolic 117 BP Diastolic 69 Pulse Ox 99 12/13/24 05:03 12/13/24 05:04 12/13/24 05:04 Temperature Temperature Source Pulse Rate 115 H 105 H Respiratory Rate Blood Pressure BP Systolic BP Diastolic Pulse Ox 100 12/13/24 05:04 12/13/24 05:04 12/13/24 05:08 Temperature Temperature Source Pulse Rate 87 Respiratory Rate Blood Pressure 117/73 BP Systolic 117 BP Diastolic 73 Pulse Ox 92 12/13/24 05:08 12/13/24 05:09 12/13/24 05:09 Temperature Temperature Source Pulse Rate 109 H 100 Respiratory Rate Blood Pressure BP Systolic BP Diastolic Pulse Ox 99 12/13/24 05:13 12/13/24 05:13 12/13/24 05:14 Temperature Temperature Source Pulse Rate 90 Respiratory Rate Blood Pressure 121/69 H BP Systolic 121 BP Diastolic 69 Pulse Ox 83 12/13/24 05:14 12/13/24 05:14 12/13/24 05:18 Temperature Temperature Source Pulse Rate 104 H 90 Respiratory Rate Blood Pressure BP Systolic BP Diastolic Pulse Ox 100 12/13/24 05:18 12/13/24 05:19 12/13/24 05:19 Temperature Temperature Source Pulse Rate 97 Respiratory Rate Blood Pressure BP Systolic BP Diastolic Pulse Ox 93 100 12/13/24 05:19 12/13/24 05:19 12/13/24 05:23 Temperature Temperature Source Pulse Rate 106 H Respiratory Rate Blood Pressure 117/62 108/58 L BP Systolic 117 108 BP Diastolic 62 58 Pulse Ox 12/13/24 05:23 12/13/24 05:24 12/13/24 05:24 Temperature Temperature Source Pulse Rate 112 H 103 H Respiratory Rate Blood Pressure BP Systolic BP Diastolic Pulse Ox 97 12/13/24 05:29 12/13/24 05:29 12/13/24 05:29 Temperature Temperature Source Pulse Rate 100 Respiratory Rate Blood Pressure 110/66 BP Systolic 110 BP Diastolic 66 Pulse Ox 100 12/13/24 05:30 12/13/24 05:33 12/13/24 05:33 Temperature Temperature Source Pulse Rate 105 H Respiratory Rate 16 Blood Pressure 107/65 BP Systolic 107 BP Diastolic 65 Pulse Ox 12/13/24 05:34 12/13/24 05:34 12/13/24 05:35 Temperature Temperature Source Pulse Rate 99 Respiratory Rate 16 Blood Pressure BP Systolic BP Diastolic Pulse Ox 97 12/13/24 05:38 12/13/24 05:38 12/13/24 05:39 Temperature Temperature Source Pulse Rate 99 99 Respiratory Rate Blood Pressure 122/75 H BP Systolic 122 BP Diastolic 75 Pulse Ox 12/13/24 05:39 12/13/24 05:40 12/13/24 05:40 Temperature Temperature Source Pulse Rate Respiratory Rate 16 16 Blood Pressure BP Systolic BP Diastolic Pulse Ox 100 12/13/24 05:43 12/13/24 05:43 12/13/24 05:43 Temperature Temperature Source Pulse Rate 100 Respiratory Rate Blood Pressure 123/75 H BP Systolic 123 BP Diastolic 75 Pulse Ox 98 12/13/24 05:45 12/13/24 05:48 12/13/24 05:48 Temperature Temperature Source Pulse Rate 112 H Respiratory Rate 16 Blood Pressure 119/68 BP Systolic 119 BP Diastolic 68 Pulse Ox 12/13/24 05:49 12/13/24 05:49 12/13/24 05:50 Temperature Temperature Source Pulse Rate 91 Respiratory Rate 16 Blood Pressure BP Systolic BP Diastolic Pulse Ox 100 12/13/24 05:53 12/13/24 05:53 12/13/24 05:54 Temperature Temperature Source Pulse Rate 103 H 105 H Respiratory Rate Blood Pressure 120/76 BP Systolic 120 BP Diastolic 76 Pulse Ox 12/13/24 05:54 12/13/24 05:55 12/13/24 05:58 Temperature Temperature Source Pulse Rate Respiratory Rate 16 Blood Pressure 120/78 BP Systolic 120 BP Diastolic 78 Pulse Ox 98 12/13/24 05:58 12/13/24 05:59 12/13/24 05:59 Temperature Temperature Source Pulse Rate 104 H 101 H Respiratory Rate Blood Pressure BP Systolic BP Diastolic Pulse Ox 100 12/13/24 06:00 Temperature Temperature Source Pulse Rate Respiratory Rate 16 Blood Pressure BP Systolic BP Diastolic Pulse Ox Weight Weight: 145 lb 3.2 oz Body Mass Index (BMI) 29.3 Physical Exam Const alert, oriented x3, no apparent distress and healthy appearing General Appearance: cooperative; Negative for anxious HEENT normocephalic Face and Sinus: normal facial exam Eyes EOMs intact bilaterally and no scleral icterus General Eye: normal appearance of both eyes Neck full ROM and supple Lymph Lymphatic: no lymphadenopathy noted Chest Chest: abnormal inspection of the chest Resp normal respiratory effort Effort and Inspection: able to speak in complete sentences Cardio regular rate GI soft to palpation and non-tender Inspection: gravid Palpation: soft; Negative for tender external exam normal Amniotic Fluid: ROM+plus Back/Spine no CVA tenderness Extremity normal to inspection, full ROM and no clubbing, cyanosis or edema General Extremity: Negative for calf tenderness or edema Skin Lesions: no lesions Rashes: no rashes Psych mental status grossly normal Labs Labs Labs: Blood Type O POSITIVE Antibody Screen NEGATIVE Hct 34.1 % (37-47) L Hgb 11.1 g/dL (12.0-15.0) L Obstetrics Ultrasound Syphilis Total Ab Non-reactive Rubella IgG Antibody Reactive (Nonreactive) Hep Bs Antigen Negative (Negative) Hepatitis C Antibody Non-Reactive (Nonreactive) Hepatitis C Ab (EIA) Chlamydia DNA ([place]) Negative (Negative) N.gonorrhoeae DNA ([place]) Negative (Negative) HIV 1&2 Antibody Non Reactive (Non Reactive) Glucose 1 Hr 50 gm 162 mg/dL (70-140) H Rhogam given: No Assessment & Plan (1) Gestational diabetes: QUALIFIERS: Gestational diabetes mellitus control: diet-controlled Trimester: third trimester Qualified Code(s): O24.410 - Gestational diabetes mellitus in , diet controlled COMMENT: Does not check often or correct times. Elevated readings noted over a 7 day course of readings. Continue to check QID. Consult dietitian. 36 wk growth US (2) Abnormal glucose affecting : COMMENT: failed 1 hour and threw up 3 hour, tracking sugars at home. <95 fasting. 2hr around 110. Enc to bring readings in (3) History of recurrent miscarriages: (4) Marijuana abuse: COMMENT: random tox. +11/11/24- patient quit! (5) Scoliosis: COMMENT: Does report causes occasional pain. (6) Bipolar disorder: QUALIFIERS: Active/Remission status: remission status unspecified Qualified Code(s): F31.9 - Bipolar disorder, unspecified COMMENT: Not on meds. (7) Supervision of high risk , antepartum: COMMENT: PRR HAZEL 12/20/24 girl Rosanne Jerez (sister-8 years old-has custody) , BF Johnnie (8) : QUALIFIERS: Weeks of gestation: 38 weeks Qualified Code(s): Z3A.38 - 38 weeks gestation of COMMENT: GBS neg, nl anatomy, nl growth PLAN: Plan Patient presents IAL, plan expectant management for , pitocin PRN - however cx is already 9 cm Pain management: has epidural. GBS negative . Management of any complications: see above I have reviewed the PFSH and made any clinically relevant updates.
[2024-12-13] MEDS: Oxytocin 10 UNITS/ML Vial IM (07:10)
[2024-12-13] MEDS: Oxytocin 15 Units/NS 250ml 15 UNITS/250 ML IV.SOLN 83 UNITS IV (07:15)
--- NOTE | 2024-12-13 07:18 | EX.PCM.OBVAG ---
Assessment & Plan (1) Gestational diabetes: QUALIFIERS: Gestational diabetes mellitus control: diet-controlled Trimester: third trimester Qualified Code(s): O24.410 - Gestational diabetes mellitus in , diet controlled COMMENT: Does not check often or correct times. Elevated readings noted over a 7 day course of readings. Continue to check QID. Consult dietitian. 36 wk growth US (2) Abnormal glucose affecting : COMMENT: failed 1 hour and threw up 3 hour, tracking sugars at home. <95 fasting. 2hr around 110. Enc to bring readings in (3) History of recurrent miscarriages: (4) Marijuana abuse: COMMENT: random tox. +11/11/24- patient quit! (5) Scoliosis: COMMENT: Does report causes occasional pain. (6) Bipolar disorder: QUALIFIERS: Active/Remission status: remission status unspecified Qualified Code(s): F31.9 - Bipolar disorder, unspecified COMMENT: Not on meds. (7) Supervision of high risk , antepartum: COMMENT: PRR HAZEL 12/20/24 girl Rosanne Jerez (sister-8 years old-has custody) , BF Johnnie (8) : QUALIFIERS: Weeks of gestation: 38 weeks Qualified Code(s): Z3A.38 - 38 weeks gestation of COMMENT: GBS neg, nl anatomy, nl growth Maternal Data Information HAZEL Calculator Estimated Delivery Date Method Current WG Current Estimate 12/20/24 Ultrasound #1 39w 0d Other Estimates 01/16/25 LMP (Uncertain) 35w 1d Final HAZEL Source: US <20 weeks Vaginal Delivery Maternal Presentation Maternal Presentation: Active Labor and Spontaneous Rupture of Membranes Vaginal Delivery Information Procedure Performed: Spontaneous Vaginal Delivery and Shoulder Dystocia Maneuvers Delivery maneuver performed for shoulder dystocia: Cruz maneuver, Suprapubic pressure and Posterior arm extraction Head to body interval: 00:50 Surgeon/Practitioner: Chastity Vitale Date of Procedure: 12/13/24 Pre-Procedure Diagnosis: active labor, srom at 39 weeks, gestational diabetes, Post-Procedure Diagnosis: active labor, srom at 39 weeks, gestational diabetes, , shoulder dystocia Type of anesthesia: Epidural Estimated Blood Loss: 200cc Time of Delivery: 07:05 Findings Description of procedure: Patient began pushing and delivered the head in the ALEXUS presentation. The head was delivered atraumatically.. The anterior shoulder was not delivering quickly. The patient was placed in supine position from her side position and mcrobert's was performed. Suprapubic was next followed by the posterior arm. The arm delivered shortly after the nurse yelled out 30 secondsand the rest of the infant and the infant was placed on the maternal abdomen. The total time of the shoulder dystocia was 50 seconds. Delayed cord clamping was employed for approximately 60 seconds. Cord was clamped and cut and gentle traction was applied to the cord and the placenta delivered spontaneously immediately following it was noted to be intact with three-vessel cord. The perineum and vagina were inspected and noted to have no laceration. EBL was 200cc. Patient and tolerated delivery well. Presentation: Vertex Amniotic Membrane Rupture Type: Spontaneous Amniotic Fluid Description: Clear Placental Delivery Description: Spontaneous Placenta Disposition: [facility] Specimen collected: No Cord Vessel Description: 3 Vessels Cord Entanglement: None A Gender: Female (1 minute): 8 (5 minute): 9 Delayed Cord Clamping: Yes Bill Checker rougher machine operator: No Post Vaginal Deli Medications given after delivery: IV Pitocin and IM Pitocin Episiotomy Description: None Laceration: None Complication Complications: No Multi Select Codes Urinary/Genital Urinary/Genital CPT Codes: 62677 Vaginal Delivery+ Care([facility])
[2024-12-13 07:50] LABS: Bedside Glucose 112 mg/dL (74-106)
[2024-12-13 10:00] LABS: Bedside Glucose 127 mg/dL (74-106)
[2024-12-13 12:57] LABS: Bedside Glucose 158 mg/dL (74-106)
[2024-12-13 13:49] LABS: Pathologist Review Reviewed
[2024-12-13 16:25] LABS: Bedside Glucose 90 mg/dL (74-106)
--- NOTE | 2024-12-13 19:40 | CASEMGMT ---
Social Work ZORAN received call from nurse Karyn in , stating a worker from [facility] was present and requesting to speak to ZORAN. ZORAN spoke to Emily over the phone, Emily requested information regarding tox screen results from mom and baby. ZORAN gave information that mom did not have a tox screen completed and baby had a tox screen that was negative for all substances. No further information requested. Emily stated she felt the visit would be short and if there were any additional concerns or questions she would reach back out. Pati Sarmiento, CLOTHING [employer] WORK[employer], CARTOGRAPHY SUPERVISOR
--- NOTE | 2024-12-13 20:01 | DCINST_ITS ---
Discharge Instructions Diet Discharge Diet: No restrictions DC O2, CPAP, BIPAP needs Home O2 Discharge instructions: No Dressing / Incision Discharge Activity: Return to Normal Activity, May Not Drive (while taking narcotic pain medications.) and May Shower May resume sexual activity in: 4-6 weeks Dressing / Incision Call your doctor if your incision/area has: Continuous Slow Oozing, Sudden Increased Bleeding, Increased Pain/ Swelling, Increased Redness and Foul Smelling Discharge Follow Up Care Please Follow Up With: Chastity Vitale DO When: Call [phone] to make an appointment with your doctor in 6 weeks. If you had elevated blood pressure or 4th degree laceration, you will need to be seen in 2 weeks. Test Results: Test results from this visit will be discussed in further detail at your follow- up appointment, if applicable. Discharge Plan Admission Admit Date/Time: 12/13/24 03:53 Attending Provider: Chastity Vitale Primary Care Provider: Care Physician,Amber Primary Discharge Orders/Prescriptions Prescriptions: No Action DHA 200 mg capsule 200 mg PO DAILY (DME) Blood Glucose Test Strip See Rx Instructions .MEDSUPPLY Qty: 120 5RF Rx Instructions: As directed-fasting & 2 hr post meals (DME) blood-glucose meter Misc See Rx Instructions .MEDSUPPLY Qty: 1 0RF Rx Instructions: As directed- Test fasting and 2 hours after meals (DME) lancets Misc See Rx Instructions .MEDSUPPLY Qty: 200 5RF Rx Instructions: As directed-fasting & 2 hr post meals Referrals / Follow Up: Care Physician,No Primary [Primary Care Provider] -
[2024-12-13 20:59] LABS: Bedside Glucose 115 mg/dL (74-106)
[2024-12-14 00:25] VITALS: BP 111/69; PULSE 97; RESP 16; TEMP 36.3
[2024-12-14 04:51] VITALS: BP 98/63; PULSE 93
[2024-12-14 04:56] VITALS: RESP 16; TEMP 36.4
[2024-12-14 06:30] LABS: Bedside Glucose 83 mg/dL (74-106)
[2024-12-14 07:46] VITALS: BP 102/69; PULSE 76; O2SAT 98
[2024-12-14 08:00] VITALS: BP 102/69; PULSE 84; RESP 16; TEMP 36.4; O2SAT 97
--- NOTE | 2024-12-14 09:28 | PCM.PN.OB ---
Subjective Subjective Patient doing well without complaints. Tolerating PO. Ambulating and voiding without difficulty. Feeding well. Denies chest pain, shortness of breath, calf pain/swelling, fevers, chills, lightheadedness. Objective Data Objective Data Vital Signs: Vital Signs Temp Pulse Resp BP Pulse Ox O2 Del Method 97.5 F L 84 16 102/69 97 Room Air 12/14/24 08:00 12/14/24 08:00 12/14/24 08:00 12/14/24 08:00 12/14/24 08:00 12/14/24 08:00 Oxygen Delivery Method Room Air Weight: 145 lb 3.2 oz Body Mass Index (BMI) 29.3 Intake & Output: Intake and Output for Last 24 Hours 12/12/24 12/13/24 12/14/24 23:59 23:59 23:59 Intake Total 1665.67 / 1665.67 Output Total 200 / 200 Balance 1465.67 / 1465.67 Lab / Micro Data 12/13/24 04:15 Labs: Laboratory Results - last 24 hr 12/13/24 04:15: Diff Path Review Reviewed 12/13/24 09:19: POC Glucose 127 H 12/13/24 12:37: POC Glucose 158 H 12/13/24 16:00: POC Glucose 90 12/13/24 20:21: POC Glucose 115 H 12/14/24 06:10: POC Glucose 83 ROS Constitutional Constitutional: Denies chills, fatigue, fever(s), poor appetite or weakness Eyes Eyes: Denies blurry vision, change in vision, seeing flashes or spots in vision ENT HEENT: Denies dizziness, headache(s), loss taste/smell or sore throat Cardiovascular Cardiovascular: Denies chest pain, dizziness, dyspnea, irregular heart rhythm, palpitations or rapid heart rate Respiratory/Chest Respiratory/Chest: Denies chest tightness, cough, dyspnea or breast pain Gastrointestinal Gastrointestinal: Denies abdominal pain, constipation or vomiting Genitourinary Genitourinary: Denies dysuria or flank pain Musculoskeletal Musculoskeletal: Denies difficulty walking, joint pain, limited range of motion or numbness Neurologic Neurologic: Denies abnormal movements, abnormal speech, dizziness, numbness, seizure-like activity or syncope Psychiatric Psychiatric: Denies anxiety, behavioral changes, change in appetite, confusion, depression or suicidal thoughts Physical Exam Const alert, oriented x3 and no apparent distress General Appearance: cooperative and comfortable Resp normal respiratory effort Cardio regular rate GI normal to inspection, nondistended, normoactive bowel sounds GI Narrative: uterus is firm below umbilicus Palpation: soft Back/Spine no CVA tenderness and thoraco-lumbar ROM normal Extremity normal to inspection, no clubbing, cyanosis or edema, no calf tenderness and no pedal edema Psych mental status grossly normal, thought process normal, cooperative, affect normal, speech normal, activity/motor behavior normal, denies homicidal ideation and denies suicidal ideation Assessment & Plan (1) Vaginal delivery: COMMENT: TONY Bess PLAN: Plan s/p PPD # 1 1. routine post delivery care 2. breast feeding- support given but wants to bottle feed 3. rh positive 4. rubella immune 5. ok to dc to home today
--- NOTE | 2024-12-16 11:40 | CASEMGMT ---
Social Work Assessment Labor and Delivery Unit Patient Address: [address] [place] [address]. [address], [place] [id number] Phone number: [phone] Date of Referral: 12/13/24 Time of Referral:? 420 Referred By: Dr. Vitale Date of Intervention: ?12/13/24? Time of Intervention:? 1430 Reason for Referral:? maternal mother is an addict Sw completed chart review and acknowledges social work consult due to concerns regarding family members use of substances. Sw presented to bedside and introduced self to mother of baby (MICHELLE- Jonathan) and father of baby (ADILENE- Johnnie Vázquez). Also present was MICHELLE's best friend, Lora. MICHELLE stated it was okay to complete assessment with her friend present. Sw explained reason for sw involvement and completed psychosocial assessment. History obtained from: medical records, MOB and ADILENE. ? Household composition: Currently residing in the family home is ADILENE MARTINEZ, their 4 year old daughter- Zaria, and MICHELLE's 9 year old sister that she has custody of- Kimberly. ADILENE reports that he has two older children, a 13 and 9 year old- however he does not have contact with them. Parents deny any problems or concerns with their housing, stating that it is safe and secure. Patient's parent/guardian status:?MICEHLLE states that she and ADILENE have been together for 8 years after meeting each other on [employer]. No concerns reported regarding domestic violence or intimate partner violence. ? Medical History: ?MICHELLE is 24 year old female who si 4, para 1- now 2 following labor and delivery of . MICHELLE received routine care during with [facility]. MICHELLE presented to hospital and delivered baby via vaginal delivery at 39 weeks gestation on 12/13/24. baby girl, named Kassandra Buchanan, was born weighing 8lb 1oz and had apgars of 8 and 9 at one and five minutes of life, respectfully. MICHELLE is bottle feeding and states that she is still deciding on a cap lining machine operator for baby. Educational Status:? MICHELLE states that she completed school through 8th grade, and ADILENE graduated and has some trade school education. Parents deny problems with reading, learning or comprehension. MICHELLE states that she stopped going to school after 8th grade so that she could help take care of her sister whom she later obtained custody of. Financial Status: ADILENE is gainfully employed outside of the home working as a subcontractor. Infant Supplies: All necessary baby supplies obtained, including: car seat, safe sleep space, clothes, diapers and wipes. Childcare/Caregiver(s):? MICHELLE will be the primary caregiver to baby, along with FOiN when he is not working. Transportation:?? Neither parent has their drivers license or reliable means of transportation. MOB states that her best friend or family help her get to scheduled appointments. FOB states that his boss helps him get to and from work. Programs/Agencies Involved: ???MICHELLE is connected to insurance through [employer] and [employer]. MOB states that she wants to get connected to [employer] ([employer]), but has not yet done so.l Children Services/Legal Issues:??? Parents deny involvement with children services. Kay explained that kay will be making a referral to [facility] due to MOB use of THC during . MOB expressed understanding. - Kay called [facility] and spoke to hotline screenerJen. Behavioral Health Issues: ??Mental Health History:?FONi denies mental health history. MOB states that she has been diagnosed with OCD, ADD, Bipolar, Depression and Anxiety. MOB states that she is not prescribed medications to help her manage her mental health symptoms. MOB states that she uses THC to help her cope with any symptoms that she may be experiencing. MOB states that she tries to do things without medication. MOB states that she has a lot of coping skills that she uses as well: wlking, being outside/ in the sunshine, listening to music, deep breathing. ?? Substance Use History:??MOB admits to THC use during . MOB states that she would smoke a couple of times a week to help her mental health, or to help her nausea. MOB states that she does not smoke in the home, but in a garage or bathroom that is not around the children in the home. MOB states that when she does smoke she ensures that there is another adult/ caregiver present. Family History:?MOB states that her mom has significant mental health history including: schizophrenia and Bipolar MOB states that her mom also has significant substance use that includes: pills, heroin and alcohol. MOB states that these concerns is what led to her losing custody of her sister. ? Drug Screens: MICHELLE has + drug screen for marijuana in November 2024. MOB drug screen negative for THC at time of delivery, and baby urine was negative, meconium still pending. Family/Social Stressors:? Parents deny any issues, concerns or stressors at this time. Support Systems: MICHELLE states that ADILENE, Lora and her grandma are her biggest supports. Depression/Shaken Baby/Safe Sleeping: Sw educated parents on signs and symptoms of baby blues and depression/ anxiety to be mindful of during this period. MOB talkative and engaging during assessment. MOB states that she did not struggle with any baby blues or symptoms after her daughter was born. MOB states that she is hopeful that she does not struggle with time either. MOB states that she and FONi have been together for a while and he would be able to recognize if she was struggling with her mental health. Sw encouraged parents to have a conversation about ways that FONi could be supportive if MOB were to struggle. FOB expressed understanding. Sw educated parents on shaken baby prevention and ABCs of safe sleep, parents expressed understanding. ASSESSMENT: MOB and baby admitted following labor and delivery of . MOB with mental health history and is not connected to any mental health services or supports. MOB states that if she were to struggle with her mental health and would experience any concerns she may consider getting connected to a counselor. Sw provided MICHELLE with list of local counseling agencies that she could use. MICHELLE has a lot on her plate at home as she has chosen to home school her 4 year old and is also the primary caregiver to her younger sister who has several medical diagnoses that impact her cognitive ability. ? MICHELLE reports to having her own supports in place, and manages things at home by prioritizing and using healthy coping skills. MOB expressed understanding for the requirement of sw to make referral to Children Services due to her use of THC during . MOB states that use was to help her manage her mental health and also nausea whenever it would present itself. MOB observed to have supports from FOB and her friend Lora. Both individuals appropriate at bedside and interactive throughout completion of assessment. Safe Plan of Care for related to substance use:? MICHELLE states that she still plans on continuing to use THC on a needed basis, which she states is usually a couple of times a week. MOB states that she never uses in front of her other children, ensures that another adult is always around and changes her clothes, washes her hands. MOB encouraged to not be under the influence when being the primary caregiver to baby or her other two children in the home. MOB also educated on how THC stays in breast milk and was discouraged from smoking and breast feeding, MOB expressed understanding and reports that is why she is bottle feeding. PLAN:?? No other services requested or indicated. MOB and baby to be discharged when medically ready. Parents were provided literature regarding: signs and symptoms of baby blues and mood and anxiety disorders, Help Me Grow, shaken baby prevention, ABCs of safe sleep and a list of [facility] resources that are available for them should any needs present themselves. Stevenson Lund, MASH FILTER OPERATOR, SOCIAL WORKER AIDE
== END 2024-12-14 10:15 | disposition home or self-care (01) | DRG 560 ==
PROVIDERS: Admitting Provider Obstetrics & Gynecology; Referring Provider Obstetrics & Gynecology; Visit Provider Obstetrics & Gynecology
DX: O24.410 Gestational diabetes mellitus in pregnancy, diet controlled (principal); Z37.0 Single live birth; F12.10 Cannabis abuse, uncomplicated; O99.324 Drug use complicating childbirth; O66.0 Obstructed labor due to shoulder dystocia; Z3A.39 39 weeks gestation of pregnancy
CPT/HCPCS: 59025; 59050; 82962; 85025; 86780; 86850; 86900; 86901